=== PATIENT | female | born 1975 | race Caucasian/White ===

== ENCOUNTER 2021-03-28 13:06 | Outpatient (REF) | payer BC, SELFPAY ==
--- NOTE | ~2021-03-28 | XR_ITS ---
EXAMINATION: XR CERVICAL SPINE CLINICAL INFORMATION: Dorsalgia COMPARISON: 04/17/2019 TECHNIQUE: 3 views of the cervical spine were obtained. FINDINGS: No acute fracture or subluxation. Slight anterolisthesis of C5 on C6 noted, likely degenerative. This is similar to prior. Vertebral body height and alignment otherwise maintained. Disc spaces are maintained. The atlantoaxial joint is well aligned. The dens is intact. The prevertebral soft tissues are unremarkable. The visualized lung apices are clear. XR/XR cervical spine 3V IMPRESSION: Minimal degenerative change at C5-C6.
--- NOTE | ~2021-03-28 | XR_ITS ---
EXAMINATION: XR THORACIC SPINE CLINICAL INFORMATION: Dorsalgia COMPARISON: None TECHNIQUE: 3 views of the thoracic spine were obtained. FINDINGS: There is no fracture or bone destruction seen and the vertebral alignment is normal. There is no disc space narrowing. There is no abnormality of the paraspinal soft tissues. The visualized lungs are clear. XR/XR thoracic spine 3V IMPRESSION: Unremarkable examination.
== END 2021-03-28 13:07 | disposition home or self-care (01) ==
LOC: HO.HMGCX 13:06
PROVIDERS: PCP Internal Medicine; Visit Provider Internal Medicine
DX: M54.9 Dorsalgia, unspecified (principal)
CPT/HCPCS: 72040; 72072

== ENCOUNTER 2021-03-31 07:04 | Outpatient (REF) | payer BC, SELFPAY ==
[2021-03-31 11:46] LABS: Hematocrit 41.3 % (37.0-47.0); Hemoglobin 13.7 g/dl (12.0-16.0); Mean Corpuscular HGB Conc 33.2 g/dl (31.0-35.0); Mean Corpuscular Hemoglobin 29.8 pg (27.0-33.0); Mean Corpuscular Volume 89.8 fL (80.0-98.0); Mean Platelet Volume 12.1 fL (9.4-12.3); Platelet Count 285 X10*3/uL (160-400); Red Cell Distribution Width 13.7 % (11.0-16.0); White Blood Count 9.9 X10*3/uL (4.8-10.8)
[2021-03-31 12:11] LABS: Alanine Aminotransferase 18 U/L (0-31); Albumin Level 4.5 g/dL (3.5-5.0); Alkaline Phosphatase 81 U/L (39-117); Anion Gap 12 (12-20); Aspartate Amino Transferase 19 U/L (5-31); Bilirubin Total 0.5 mg/dL (0.0-1.0); Blood Urea Nitrogen 14 mg/dL (9-16); Carbon Dioxide 22 mmol/L (22-29); Chloride 110 mmol/L (96-108); Cholesterol 244 mg/dL; Estimated Glomerular Filt Rate > 60; Glucose Fasting 96 mg/dL (60-99); HDL Cholesterol 55 mg/dL; LDL Cholesterol Calculated 157 mg/dl; Potassium 4.2 mmol/L (3.3-5.1); Sodium 140 mmol/L (135-145); Total Protein 7.1 g/dL (6.5-8.0); Triglycerides 161 mg/dL
[2021-03-31 12:18] LABS: TSH reflex Free T4 1.78 uIU/mL (0.32-4.0)
== END 2021-03-31 07:05 | disposition home or self-care (01) ==
LOC: HO.HMGCLDS 07:04
PROVIDERS: PCP Internal Medicine; Visit Provider Internal Medicine
DX: Z00.00 Encounter for general adult medical examination without abnormal findings (principal)
CPT/HCPCS: 36415; 80053; 80061; 84443; 85027

== ENCOUNTER 2021-05-02 07:38 | Outpatient (RCR) | payer BC, SELFPAY ==
--- NOTE | 2021-05-02 08:54 | MHC.PT.EP ---
[facility] [place] Office [place] Office [place] Office [address] Catie De Jesus [address] [phone] F: [phone] F: [phone] F: [phone] F: [phone] Physical Therapy Plan of Care Date of Evaluation: Date of Surgery: n/a Diagnosis: upper back pain Assessment: Patient is a 45 year old female presenting to PT with complaints of pain in her neck and upper back region. Pt reports onset of pain began over 3 months ago due to insidious onset. She presents today with impairments in pain +ttp R scap musculature and periscap region, posture, and pain free ROM. 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 Pt expresses prison goal of being able to sleep, and is motivated to work towards this in PT. Clinical presentation today is most consistent with signs and sx associated with postural related pain and possible upper crossed syndrome and pt will benefit from skilled PT to address the following problems and impairments noted upon evaluation: pain +ttp R scap musculature and periscap region, posture, and pain free ROM. These problems limit the patient with the following functional activities: sleeping, and prolonged standing. The prescribed treatment plan of care is medically necessary. Co-morbidities of none were identified and taken into considerations of plan of care. Pt was educated on HEP, role of PT, prognosis, POC. Frequency and Duration: The patient will be seen 2 x week x 4 weeks Short Term Goals: Pt will demonstrate improved pain to <3/10 at rest for improved QOL in 2 weeks. Pt will demonstrate function pain free shoulder ROM in all directions in 2 weeks. Pt will demonstrate improved postural awareness by sitting with biomechanically correct posture without cues throughout session to improve overall postural function in 2 weeks. Shelter Goals: Pt will demonstrate improved NDI score to less than 20% disability in 4 weeks for improved tolerance to functional activities. Pt will demonstrate self reports of improved ability to sleep through the night with min to no pain in 4 weeks. Pt will demonstrate ability to stand for prolonged periods of time in 4 weeks for improved tolerance to grocery shopping. Treatment Plan: Modalities to reduce pain, spasms and effusion. Manual therapy to restore motion and function. Therapeutic exercise to improve strength and flexibility. Neuromuscular re-education for posture and balance. Therapeutic activities to return to functional activities of daily living. Electronically signed by: Sariah Gonzalez, PT, DPT, ATC Please sign and return to therapist. Thank you for your referral.
--- NOTE | 2021-06-19 09:51 | MHC.PT.DC ---
[facility] [place] Office [place] Office [address] Te[address] De Jesus [address] [phone] F: [phone] F: [phone] F: [phone] F: [phone] Physical Therapy Discharge Report Diagnosis: upper back pain Date of Surgery: n/a Date of Evaluation: 05/02/21 Date of Discharge: 06/19/21 Treatments to Date: 1 Cancellations to Date: 2 No Shows to Date: 0 Discharge Status: Patient Elected to Stop Visit Non-compliance Discharge Summary: Pt has not returned to skilled PT since evaluation. She cancelled her only 2 scheduled appts. It has been over 30 days since start of care and pt status currently unknown at this time. Electronically signed by: Sariah Gonzalez, PT, DPT, ATC Please sign and return to therapist. Thank you for your referral.
== END 2021-06-19 09:51 | disposition home or self-care (01) ==
LOC: HO.PTCHIC 07:38
PROVIDERS: PCP Internal Medicine; Visit Provider Internal Medicine
DX: M54.9 Dorsalgia, unspecified (principal)
CPT/HCPCS: 97110; 97161

== ENCOUNTER 2021-09-19 07:10 | Outpatient (REF) | payer BC, SELFPAY ==
[2021-09-19 11:57] LABS: Cholesterol 230 mg/dL; HDL Cholesterol 65 mg/dL; LDL Cholesterol Calculated 144 mg/dl; Triglycerides 109 mg/dL
== END 2021-09-19 07:11 | disposition home or self-care (01) ==
LOC: HO.HMGCLDS 07:10
PROVIDERS: Visit Provider Internal Medicine
DX: E78.5 Hyperlipidemia, unspecified (principal)
CPT/HCPCS: 36415; 80061

== ENCOUNTER 2022-10-03 07:29 | Outpatient (REF) | payer BC, SELFPAY ==
[2022-10-03 11:12] LABS: MANUAL DIFF FLAG NO
[2022-10-03 11:24] LABS: Basophils Absolute Auto 0.1 X10*3/uL (0.0-0.2); Basophils Percent Auto 1.2 % (0-2); Eosinophils Absolute Auto 0.3 X10*3/uL (0.0-0.4); Eosinophils Percent Auto 3.2 % (0-4); Hematocrit 42.2 % (37.0-47.0); Hemoglobin 13.8 g/dl (12.0-16.0); Imm Gran Abs Auto 0.02 X10*3/uL (0.00-0.03); Imm Gran Pct Auto 0.2 % (0.0-0.4); Lymphocytes Absolute Auto 3.2 X10*3/uL (1.2-4.9); Lymphocytes Percent Auto 31.2 % (20-40); Mean Corpuscular HGB Conc 32.7 g/dl (31.0-35.0); Mean Corpuscular Hemoglobin 29.2 pg (27.0-33.0); Mean Corpuscular Volume 89.2 fL (80.0-98.0); Monocytes Absolute Auto 0.8 X10*3/uL (0.1-1.2); Monocytes Percent Auto 8.3 % (2-11); Neutrophils Absolute Auto 5.7 x10*3/uL (2.0-8.3); Neutrophils Percent Auto 55.9 % (45-73); Platelet Count 285 X10*3/uL (160-400); Red Blood Count 4.73 X10*6/uL (4.20-5.50); Red Cell Distribution Width 13.9 % (11.0-16.0); White Blood Count 10.2 X10*3/uL (4.8-10.8)
[2022-10-03 11:38] LABS: Alanine Aminotransferase 19 U/L (0-31); Albumin Level 4.2 g/dL (3.5-5.0); Alkaline Phosphatase 72 U/L (39-117); Anion Gap 12 (12-20); Aspartate Amino Transferase 18 U/L (5-31); Bilirubin Total 0.4 mg/dL (0.0-1.0); Blood Urea Nitrogen 19 mg/dL (9-16); C Reactive Protein 2.84 mg/dL (< or = 0.50); Calcium 9.2 mg/dL (8.4-10.2); Carbon Dioxide 24 mmol/L (22-29); Chloride 110 mmol/L (96-108); Cholesterol 247 mg/dL; Estimated Glomerular Filt Rate > 60; Glucose Fasting 94 mg/dL (60-99); HDL Cholesterol 47 mg/dL; LDL Cholesterol Calculated 171 mg/dl; Rheumatoid Factor < 13.0 IU/mL (<15.0); Sodium 142 mmol/L (135-145); Triglycerides 149 mg/dL
== END 2022-10-03 07:30 | disposition home or self-care (01) ==
LOC: HO.HMGCLDS 07:29
PROVIDERS: PCP Internal Medicine; Visit Provider Internal Medicine
DX: Z00.00 Encounter for general adult medical examination without abnormal findings (principal); K59.00 Constipation, unspecified; K21.9 Gastro-esophageal reflux disease without esophagitis
CPT/HCPCS: 36415; 80053; 80061; 85025; 86140; 86431

== ENCOUNTER 2022-10-15 07:45 | Outpatient (REF) | payer BC, SELFPAY ==
[2022-10-18 16:28] LABS: Cyclic Citrullinated Peptide <16 UNITS
[2022-10-19 17:57] LABS: Lyme Abs Screen <0.90 index
[2022-10-28 09:38] LABS: Anti Nuclear Antibody Screen POSITIVE (NEGATIVE)
== END 2022-10-15 07:46 | disposition home or self-care (01) ==
LOC: HO.HMGCLDS 07:45
PROVIDERS: PCP Internal Medicine; Visit Provider Internal Medicine
DX: R79.82 Elevated C-reactive protein (CRP) (principal); R82.90 Unspecified abnormal findings in urine
CPT/HCPCS: 36415; 86038; 86039; 86200; 86617; 86618; 87086

== ENCOUNTER 2022-11-24 10:25 | Outpatient (REF) | payer BC, SELFPAY ==
[2022-11-24 11:47] LABS: Erythrocyte Sedimentation Rate 8 MM/HR (0-20)
[2022-11-24 12:05] LABS: Rheumatoid Factor < 13.0 IU/mL (<15.0)
[2022-11-25 10:54] LABS: Complement C3 186 mg/dL (83-193)
[2022-11-27 12:33] LABS: Aldolase 3.5 U/L (<=8.1)
[2022-11-27 13:33] LABS: IgA 187 mg/dL (47-310); IgG 1198 mg/dL (600-1640); IgM 96 mg/dL (50-300)
[2022-11-28 12:43] LABS: DNAds, Crithidia Antibody Negative (Negative)
== END 2022-11-24 10:26 | disposition home or self-care (01) ==
LOC: HO.LAB 10:25
PROVIDERS: PCP Internal Medicine; Visit Provider Psychiatry & Neurology Neurology
DX: R20.2 Paresthesia of skin (principal)
CPT/HCPCS: 36415; 82085; 82550; 82784; 85652; 86160; 86255; 86334; 86431

== ENCOUNTER 2023-01-06 08:53 | Outpatient (AMB) | payer BC, SELFPAY ==
[2023-01-06 09:14] VITALS: BP 122/70; PULSE 82; TEMP 36.3; O2SAT 98; BMI 32.2
--- NOTE | 2023-01-06 09:14 | A.OFFVIS_ITS ---
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 Accompanied by: Self / Same As Patient Allergies aspirin Allergy (Unknown, Unverified 01/06/23 09:17) Stomach pain meperidine [Demerol] Allergy (Unknown, Verified 01/06/23 09:17) face swelling latex Allergy (Verified 01/06/23 09:17) Rash Medication List - Last Reconciled 01/06/23 by Carl Reid MD baclofen 10 mg PO BEDTIME PRN estradiol 1 mg PO DAILY levothyroxine (Synthroid) 100 mcg PO DAILY meloxicam 15 mg PO DAILY PRN omeprazole 40 mg PO DAILY sertraline 50 mg PO DAILY tamsulosin 0.4 mg PO DAILY topiramate 50 mg PO TID trazodone 50 mg PO BEDTIME HPI HPI Comments History of Present Illness Details This is a 47-year-old female with a past medical history of psoriasis who presents for evaluation of diffuse joint pain and elevated CRP. Patient mentions that she has had psoriasis for more than 15 years, she would have the patches on her elbows, legs and occasionally on her scalp. Treated with topical steroids. She denies ever requiring more aggressive therapy in the past for psoriasis. Over the past year patient has had recurrent migratory joint pain affecting different joints including her right shoulder, wrists, elbows, knees, feet. Her fingers, feet, knees would be swollen. The pain and swelling is sometimes brought on with activity. She had a left bunion surgery a year ago and she believes it did not heal well. She continues to have pain in her left big toe. She stated that she has had lumbar spine surgery about 10 years ago. She was feeling well for a few years however over the last year she has been having pain in her lower back radiating to her right lower extremity. This pain is similar to the pain she had in the past. [facility] Medical History (Updated 01/06/23 @ 11:52 by Carl Reid MD) Annual physical exam Bunion of great toe of right foot History of nephrolithiasis Migraine Psoriasis Upper back pain Surgical History History of bilateral breast reduction surgery Hx of hysterectomy Family History Father Hypertension Head and neck cancer Mother Hypertension Social History Housing: House Patient Tobacco Use Status: Never used Tobacco e-Cigarette/Vaping Use: Never Used Current occupational status: employed Cognitive needs: No Hearing needs: No Vision needs: Yes Review of Systems Const Reports fatigue, Reports headache(s) and Reports weakness Eyes Reports dry eyes, Reports itchy eyes and Reports eye pain ENT Reports dizziness, Reports dry mouth, Reports headache(s) and Reports tinnitus GI Reports constipation, Reports heartburn and Reports nausea Musc Reports back pain, Reports arthralgias, Reports joint swelling, Reports limited range of motion and Reports stiffness Neuro Reports dizziness, Reports headache(s) and Reports weakness Psych Reports anxiety and Reports depression Endo Reports fatigue Aller/Immun Reports itchy eyes Physical Exam Vital Signs: Last Vital Signs Temp 97.3 F 01/06/23 09:14 Pulse 82 01/06/23 09:14 BP 122/70 01/06/23 09:14 Pulse Ox 98 01/06/23 09:14 BMI result Body Mass Index 32.2 Const General: cooperative, healthy appearing and comfortable Nutritional Appearance: obese Orientation/consciousness: patient oriented x3 Limitations: no limitations HEENT Head: Yes normocephalic and Yes atraumatic Mouth: moist mucous membranes Resp Effort & Inspection: normal respiratory effort and able to speak in complete sentences Auscultation: clear to auscultation bilaterally Cardio Rate: regular rate Rhythm: regular rhythm GI Palpation (GI): Soft to palpation and nontender Skin General skin exam: no rashes or lesions noted Neuro General: patient oriented x3 Extrem Other: Mild right wrist swelling and pain with full flexion and extension Left wrist pain with full flexion and extension Bilateral diffuse PIP tenderness Bilateral elbow pain with full extension Right shoulder pain with passive range of motion Negative straight leg raise test bilaterally Negative Fabere test bilaterally Aixa test 10-16 cm Assessment & Plan Assessment & Plan (1) Inflammatory arthritis: Code(s): M19.90 - Unspecified osteoarthritis, unspecified site Plan: This is a 47-year-old female with a past medical history of psoriasis who presents for evaluation of 1 year history of migratory joint pain. Upon evaluation patient has multiple tender joints. Labs showed elevated CRP. Clinical picture consistent with inflammatory arthritis. Will order comprehensive serology to screen for underlying autoimmune rheumatic disease. Check x-rays of involved joints. Start prednisone therapeutic trial (2) ESTHELA positive: Code(s): R76.8 - Other specified abnormal immunological findings in serum Plan: Will order comprehensive sub serologies for full evaluation Plan I spent 46 minutes reviewing patient's chart, evaluating patient, ordering diagnostic workup, counseling patient and documenting in the chart Orders: Orders Complete Blood Count Auto Diff Today L40.50 - Arthropathic psoriasis, unspecified Comprehensive Met. Panel Today L40.50 - Arthropathic psoriasis, unspecified C Reactive Protein Today L40.50 - Arthropathic psoriasis, unspecified Erythrocyte Sedimentation Rate Today L40.50 - Arthropathic psoriasis, unspecified Hepatitis A,B,C Profile Today Z11.59 - Encounter for screening for other viral diseases Immunofixation Pnl, Serum Today L40.50 - Arthropathic psoriasis, unspecified Protein Electrophoresis, Serum Today L40.50 - Arthropathic psoriasis, unspecified T Spot TB Today Z11.7 - Encounter for testing for latent tuberculosis infection Anti Extractable Nuclear Ag Today R76.8 - Other specified abnormal immunological findings in serum Protein Creatinine Ratio, Ur Today R76.8 - Other specified abnormal immunological findings in serum Sjogren's Antibodies Today R76.8 - Other specified abnormal immunological findings in serum UA w Microscopic Today R76.8 - Other specified abnormal immunological findings in serum HLA B27 Today G89.29 - Other chronic pain, M54.50 - Low back pain, unspecified XR sacroiliac joint min 3V Today L40.50 - Arthropathic psoriasis, unspecified XR lumbar spine 4V min Today L40.50 - Arthropathic psoriasis, unspecified XR hand wrist LT Today L40.50 - Arthropathic psoriasis, unspecified XR hand wrist RT Today L40.50 - Arthropathic psoriasis, unspecified XR shoulder LT min 2V Today L40.50 - Arthropathic psoriasis, unspecified XR shoulder RT min 2V Today L40.50 - Arthropathic psoriasis, unspecified XR foot LT min 3V Today L40.50 - Arthropathic psoriasis, unspecified XR foot RT min 3V Today L40.50 - Arthropathic psoriasis, unspecified Medications: New prednisone Take 3 tabs by mouth once daily with breakfast for 1 week then 2 tabs daily for 1 week then 1 tab daily for 1 week then stop 10 mg PO DAILY 42 tabs 0RF Changed From meloxicam 15 mg PO DAILY 20 tabs 2RF To meloxicam 15 mg PO DAILY PRN Coding Level of Care Code New Pt Level 4 (45597) Diagnoses Inflammatory arthritis M19.90 ESTHELA positive R76.8
== END 2023-01-06 10:08 | disposition home or self-care (01) ==
PROVIDERS: PCP Internal Medicine; Visit Provider Student in an Organized Health Care Education/Training Program
DX: M19.90 Unspecified osteoarthritis, unspecified site (principal); R76.8 Other specified abnormal immunological findings in serum
CPT/HCPCS: 99204

== ENCOUNTER 2023-01-06 08:53 | Outpatient (REF) | payer BC, SELFPAY ==
--- NOTE | ~2023-01-06 | XR_ITS ---
EXAMINATION: XR FOOT, LEFT CLINICAL INFORMATION: Arthropathic psoriasis, unspecified COMPARISON: None available. TECHNIQUE: AP, lateral, and oblique views of the left foot. FINDINGS: No acute bony fracture or dislocation seen. There is slight medial eccentric narrowing of the left first MTP joint. Metatarsals are intact. No erosive process seen. Midfoot and calcaneus appear unremarkable. XR/XR foot LT min 3V IMPRESSION: No acute process. Slight medial eccentric narrowing of the left first MTP joint.
--- NOTE | ~2023-01-06 | XR_ITS ---
EXAMINATION: XR SACROILIAC JOINTS CLINICAL INFORMATION: Arthropathic psoriasis, unspecified COMPARISON: None available. TECHNIQUE: 3 views of the sacroiliac joints FINDINGS: Bones and soft tissues are normal. No fracture. Alignment is anatomic. The SI joints are maintained with no erosions or ankylosis. There is sclerosis on the iliac side of the SI joints, likely on a degenerative basis. XR/XR sacroiliac joint min 3V IMPRESSION: 1. SI joints maintained. No erosions or ankylosis. 2. Degenerative changes of the SI joints.
--- NOTE | ~2023-01-06 | XR_ITS ---
EXAMINATION: XR SHOULDER, RIGHT CLINICAL INFORMATION: Arthropathic psoriasis, unspecified COMPARISON: March 2019. TECHNIQUE: AP external rotation, Grashey, scapular Y, and axillary views of the right shoulder. FINDINGS: No evidence for acute fracture or dislocation. The right glenohumeral joint space is maintained. Scapula intact. The clavicle and AC joint are unremarkable. No erosive process seen. XR/XR shoulder RT min 2V IMPRESSION: No acute process. No significant change since previous examination.
--- NOTE | ~2023-01-06 | XR_ITS ---
EXAMINATION: XR LUMBOSACRAL SPINE WITH OBLIQUES CLINICAL INFORMATION: Arthropathic psoriasis, unspecified COMPARISON: Lateral reconstructions from abdomen pelvis CT 09/09/2022. TECHNIQUE: AP, both oblique, and lateral views of the lumbar spine. Lateral view of the lumbosacral junction. FINDINGS: No evidence for acute lumbar compression fracture. Postsurgical changes again observed at the L5-S1 level. There is facet arthrosis. Sacrum appears intact. SI joints are maintained. Pedicles and transverse processes unremarkable. No evidence for spondylolysis. XR/XR lumbar spine 4V min IMPRESSION: 1. No acute compression fracture. Facet arthrosis. 2. Postsurgical changes L5-S1.
--- NOTE | ~2023-01-06 | XR_ITS ---
EXAMINATION: XR SHOULDER, LEFT CLINICAL INFORMATION: Arthropathic psoriasis, unspecified COMPARISON: None available. TECHNIQUE: AP external rotation, Grashey, scapular Y, and axillary views of the left shoulder. FINDINGS: No acute fracture or dislocation seen. Clavicle and the AC joint are unremarkable. The scapula appears within normal limits. The glenohumeral joint space appears unremarkable. XR/XR shoulder LT min 2V IMPRESSION: No acute process.
--- NOTE | ~2023-01-06 | XR_ITS ---
EXAMINATION: XR WRIST, RIGHT XR HAND, RIGHT CLINICAL INFORMATION: Arthropathic psoriasis, unspecified COMPARISON: None available. TECHNIQUE: PA, lateral, and oblique views of the right wrist and PA, lateral, and oblique views of the right hand FINDINGS: RIGHT WRIST: The bones and soft tissues are normal. No fracture. Alignment is anatomic. There is slight narrowing in the lateral aspect of the radiocarpal joint. No erosions or soft tissue calcifications. RIGHT HAND: The bones and soft tissues are normal. No fracture. Alignment is anatomic. Joint spaces are maintained. No erosions or soft tissue calcifications. XR/XR hand wrist RT IMPRESSION: No acute process. Slight narrowing in the lateral aspect of the radiocarpal joint. No erosions or soft tissue calcifications.
--- NOTE | ~2023-01-06 | XR_ITS ---
EXAMINATION: XR WRIST, LEFT XR HAND, LEFT CLINICAL INFORMATION: Arthropathic psoriasis, unspecified COMPARISON: None available. TECHNIQUE: PA, lateral, and oblique views of the left wrist and PA, lateral, and oblique views of the left hand FINDINGS: LEFT WRIST: The bones and soft tissues are normal. No fracture. Alignment is anatomic. Joint spaces are maintained. No erosions or soft tissue calcifications. LEFT HAND: The bones and soft tissues are normal. No fracture. Alignment is anatomic. Joint there is eccentric narrowing of the IP joint of the left first digit. No erosions or soft tissue calcifications. XR/XR hand wrist LT IMPRESSION: No evidence for acute process. Degenerative changes of the IP joint of the left first digit. No erosions or soft tissue calcifications.
--- NOTE | ~2023-01-06 | XR_ITS ---
EXAMINATION: XR FOOT, RIGHT CLINICAL INFORMATION: Arthropathic psoriasis, unspecified COMPARISON: None available. TECHNIQUE: AP, lateral, and oblique views of the right foot. FINDINGS: No evidence for acute fracture, dislocation, or erosive process. MCP joints are maintained. There are postoperative changes at the right first metatarsal head with a screw in position. Slight narrowing of the right first TMT joint. Midfoot and calcaneus appear intact. XR/XR foot RT min 3V IMPRESSION: No acute process. Postoperative changes at the right first metatarsal head. Slight narrowing of the right first TMT joint.
[2023-01-06 10:40] LABS: MANUAL DIFF FLAG NO
[2023-01-06 11:19] LABS: Basophils Absolute Auto 0.1 X10*3/uL (0.0-0.2); Basophils Percent Auto 1.3 % (0-2); Eosinophils Absolute Auto 0.3 X10*3/uL (0.0-0.4); Eosinophils Percent Auto 3.5 % (0-4); Hematocrit 42.1 % (37.0-47.0); Imm Gran Abs Auto 0.03 X10*3/uL (0.00-0.03); Imm Gran Pct Auto 0.3 % (0.0-0.4); Lymphocytes Absolute Auto 3.3 X10*3/uL (1.2-4.9); Lymphocytes Percent Auto 36.4 % (20-40); Mean Corpuscular HGB Conc 33.3 g/dl (31.0-35.0); Mean Corpuscular Hemoglobin 29.2 pg (27.0-33.0); Mean Corpuscular Volume 87.7 fL (80.0-98.0); Mean Platelet Volume 11.6 fL (9.4-12.3); Monocytes Absolute Auto 0.7 X10*3/uL (0.1-1.2); Monocytes Percent Auto 7.4 % (2-11); Neutrophils Absolute Auto 4.6 x10*3/uL (2.0-8.3); Neutrophils Percent Auto 51.1 % (45-73); Platelet Count 298 X10*3/uL (160-400); Red Cell Distribution Width 13.3 % (11.0-16.0); White Blood Count 9.1 X10*3/uL (4.8-10.8)
[2023-01-06 11:54] LABS: Erythrocyte Sedimentation Rate 5 MM/HR (0-20)
[2023-01-06 11:59] LABS: Alanine Aminotransferase 33 U/L (0-31); Albumin Level 4.3 g/dL (3.5-5.0); Alkaline Phosphatase 73 U/L (39-117); Anion Gap 15 (12-20); Aspartate Amino Transferase 23 U/L (5-31); Bilirubin Total 0.2 mg/dL (0.0-1.0); Blood Urea Nitrogen 15 mg/dL (9-16); C Reactive Protein 1.26 mg/dL (< or = 0.50); Calcium 9.7 mg/dL (8.4-10.2); Carbon Dioxide 26 mmol/L (22-29); Chloride 105 mmol/L (96-108); Estimated Glomerular Filt Rate > 60; Glucose Random 102 mg/dL (60-115); Sodium 142 mmol/L (135-145); Total Protein 7.5 g/dL (6.5-8.0)
[2023-01-06 12:34] LABS: Appearance Urine Cloudy; Color Urine Yellow; Glucose Urine UA Negative (Negative); Leukocyte Esterase Urine Negative (Negative); Nitrite Urine Negative (Negative); Specific Gravity - Urine 1.015 (1.005-1.025); Urine Blood Negative (Negative); Urine Ketones Negative (Negative); Urine Protein Negative (Neg-Trace)
[2023-01-06 12:36] LABS: Bacteria Urine 1+ (None Seen); Hyaline Casts Urine 0-2 /LPF (0-2); RBC Urine 0-2 /HPF (0-2); WBC Urine 0-5 /HPF (0-5)
[2023-01-06 14:51] LABS: Creatinine Urine 62.41 mg/dL; Total Protein Urine Random < 7 mg/dL (<12)
[2023-01-07 04:03] LABS: HBS Num1 0.25 mIU/mL (0-7.99); HBc Num1 0.11 S/CO (0.00-0.79); HBsAGNum1 0.35 S/CO (0.00-0.99); Hepatitis A Antibody IgM 0.18 Index (0-0.79); Hepatitis B Core Antibody Nonreactive (Nonreactive); Hepatitis B Surface Antigen Negative (Negative); ~HepC Num1 0.13 S/CO (0.00-0.79); ~Hepatitis A Antibody IgM Nonreactive (Nonreactive); ~Hepatitis B Surface Antibody NONREACTIVE (Nonreactive); ~Hepatitis C Antibody Nonreactive (Nonreactive)
[2023-01-08 11:29] LABS: Antibody to SS-A Antigen <1.0 NEG AI (<1.0 NEG); Antibody to SS-B Antigen <1.0 NEG AI (<1.0 NEG); SM/Ribonucleoprotein Ab <1.0 NEG AI (<1.0 NEG); Smith Protein <1.0 NEG AI (<1.0 NEG)
[2023-01-08 16:32] LABS: TS Negative Control Passed; TS Panel A 0; TS Panel B 0; TS Positive Control Passed; TSpotTB Negative (Negative)
[2023-01-11 09:18] LABS: IgA 185 mg/dL (47-310); IgG 1212 mg/dL (600-1640); IgM 92 mg/dL (50-300)
[2023-01-11 11:53] LABS: Prot Elec - Albumin 4.3 g/dL (3.8-4.8); Prot Elec - Alpha1 0.3 g/dL (0.2-0.3); Prot Elec - Alpha2 0.6 g/dL (0.5-0.9); Prot Elec - Beta 1 0.4 g/dL (0.4-0.6); Prot Elec - Beta 2 0.4 g/dL (0.2-0.5); Prot Elec - Gamma 0.9 g/dL (0.8-1.7)
[2023-01-12 09:58] LABS: HLA B27 Negative (Negative)
== END 2023-01-06 08:54 | disposition home or self-care (01) ==
LOC: HO.LAB 08:53
PROVIDERS: PCP Internal Medicine; Visit Provider Student in an Organized Health Care Education/Training Program
DX: M54.50 Low back pain, unspecified (principal); L40.50 Arthropathic psoriasis, unspecified; M25.50 Pain in unspecified joint; M19.90 Unspecified osteoarthritis, unspecified site; R76.8 Other specified abnormal immunological findings in serum; G89.29 Other chronic pain; Z11.7 Encounter for testing for latent tuberculosis infection; Z11.59 Encounter for screening for other viral diseases; Z72.89 Other problems related to lifestyle; Z79.899 Other long term (current) drug therapy
CPT/HCPCS: 36415; 72110; 72202; 73030; 73110; 73130; 73630; 80053; 81001; 82784; 84156; 84165; 85025; 85652; 86140; 86235; 86334; 86481; 86704; 86706; 86709; 86803; 86812; 87340

== ENCOUNTER 2023-01-20 09:47 | Outpatient (AMB) | payer BC, SELFPAY ==
[2023-01-20 09:51] VITALS: BP 122/84; PULSE 84; TEMP 36.3; O2SAT 98; BMI 33.1
--- NOTE | 2023-01-20 09:51 | MHC.OFFVIS ---
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 Accompanied by: Self / Same As Patient Allergies aspirin Allergy (Unknown, Unverified 01/20/23 10:00) Stomach pain meperidine [Demerol] Allergy (Unknown, Verified 01/20/23 10:00) face swelling latex Allergy (Verified 01/20/23 10:00) Rash Medication List - Last Reconciled 01/20/23 by Carl Reid MD baclofen 10 mg PO BEDTIME PRN estradiol 1 mg PO DAILY levothyroxine (Synthroid) 100 mcg PO DAILY meloxicam 15 mg PO DAILY PRN omeprazole 40 mg PO DAILY prednisone 10 mg PO DAILY sertraline 50 mg PO DAILY tamsulosin 0.4 mg PO DAILY topiramate 50 mg PO TID trazodone 50 mg PO BEDTIME HPI HPI Comments History of Present Illness Details Patient returns for follow-up after completion of her blood work and x-rays. She states that she took prednisone 30 mg daily for a few days and could not tolerate it due to nausea. She also tried taking 20 mg a day and she also had nausea with it it did not help any of her symptoms. She continues to have tingling numbness and weakness of her fingers. 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 Initial history: This is a 47-year-old female with a past medical history of psoriasis who presents for evaluation of diffuse joint pain and elevated CRP. Patient mentions that she has had psoriasis for more than 15 years, she would have the patches on her elbows, legs and occasionally on her scalp. Treated with topical steroids. She denies ever requiring more aggressive therapy in the past for psoriasis. Over the past year patient has had recurrent migratory joint pain affecting different joints including her right shoulder, wrists, elbows, knees, feet. Her fingers, feet, knees would be swollen. The pain and swelling is sometimes brought on with activity. She had a left bunion surgery a year ago and she believes it did not heal well. She continues to have pain in her left big toe. She stated that she has had lumbar spine surgery about 10 years ago. She was feeling well for a few years however over the last year she has been having pain in her lower back radiating to her right lower extremity. This pain is similar to the pain she had in the past. [facility] Medical History (Updated 01/20/23 @ 13:07 by Carl Reid MD) Annual physical exam Bunion of great toe of right foot History of nephrolithiasis Migraine Psoriasis Upper back pain Surgical History History of bilateral breast reduction surgery Hx of hysterectomy Family History Father Hypertension Head and neck cancer Mother Hypertension Maternal Aunt Psoriatic arthritis Social History Housing: House Patient Tobacco Use Status: Never used Tobacco e-Cigarette/Vaping Use: Never Used Current occupational status: employed Cognitive needs: No Hearing needs: No Vision needs: Yes Review of Systems Musc Reports back pain, Reports myalgias, Reports arthralgias, Reports muscle weakness, Reports numbness and Reports tingling Neuro Reports numbness and Reports tingling Physical Exam Vital Signs: Last Vital Signs Temp 97.3 F 01/20/23 09:51 Pulse 84 01/20/23 09:51 BP 122/84 01/20/23 09:51 Pulse Ox 98 01/20/23 09:51 BMI result Body Mass Index 33.1 Const General: cooperative, healthy appearing and comfortable Nutritional Appearance: obese Orientation/consciousness: patient oriented x3 Limitations: no limitations HEENT Head: Yes normocephalic and Yes atraumatic Resp Effort & Inspection: normal respiratory effort and able to speak in complete sentences Skin General skin exam: no rashes or lesions noted Neuro General: patient oriented x3 Extrem Other: Right wrist pain with full flexion and extension Left wrist pain with full flexion and extension Bilateral diffuse PIP tenderness Positive Tinel sign bilaterally Bilateral elbow pain with full extension Right shoulder pain with passive range of motion Negative straight leg raise test bilaterally Negative Jasmina test bilaterally Aixa test 10-16 cm Few fibromyalgia tender points Assessment & Plan Assessment & Plan (1) Polyarthralgia: Code(s): M25.50 - Pain in unspecified joint Plan: This is a 47-year-old female with a past medical history of psoriasis who presents for evaluation of 1 year history of migratory joint pain.? Upon evaluation patient has multiple tender joints as well as multiple fibromyalgia tender points. Labs showed elevated CRP. Comprehensive serology is unremarkable. X-rays of involved joints do not show signs of inflammatory arthropathy. Symptoms did not improve with prednisone taper. Will order bilateral hand and wrist ultrasound to evaluate for synovitis/tenosynovitis (2) ESTHELA positive: Code(s): R76.8 - Other specified abnormal immunological findings in serum Plan: 1: 80 nuclear fine speckled. Comprehensive sub serologies negative. Her positive ESTHELA is of unclear significant (3) Bilateral carpal tunnel syndrome: Code(s): G56.03 - Carpal tunnel syndrome, bilateral upper limbs Plan: Seems to be her most symptomatic condition. Confirmed with NCS. Advised patient to continue wearing wrist splints. Referred patient to Hand surgery for further evaluation Plan I spent 26 minutes reviewing patient's chart, evaluating patient, ordering diagnostic workup, counseling patient and documenting in the chart Orders: Orders US extremity nonvascular Today M19.90 - Unspecified osteoarthritis, unspecified site Referrals Hand Surgery Referral G56.03 - Carpal tunnel syndrome, bilateral upper limbs Coding Level of Care Code Est Pt Level 4 (70459) Diagnoses Polyarthralgia M25.50 ESTHELA positive R76.8 Bilateral carpal tunnel syndrome G56.03
== END 2023-01-20 10:51 | disposition home or self-care (01) ==
PROVIDERS: PCP Internal Medicine; Visit Provider Student in an Organized Health Care Education/Training Program
DX: M25.50 Pain in unspecified joint (principal); R76.8 Other specified abnormal immunological findings in serum; G56.03 Carpal tunnel syndrome, bilateral upper limbs
CPT/HCPCS: 99214

== ENCOUNTER → 2023-01-20 09:47 | Outpatient (BNVA) | payer BC, SELFPAY | PROVIDERS: PCP Internal Medicine; Visit Provider Student in an Organized Health Care Education/Training Program ==

== ENCOUNTER 2023-02-03 14:40 | Outpatient (AMB) | payer BC, SELFPAY ==
[2023-02-03 15:02] VITALS: BMI 33.0
--- NOTE | 2023-02-03 15:02 | A.OFFVIS_ITS ---
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 States she has had CTS for the a few years now but has worsen about 1 months ago. States this is a work related DOI 01/06/23. 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 She has tried bracing but limits her hand ROM. Patient is interested in discussing surgery. EMG done November 2022. 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 She says she was told she had carpal tunnel syndrome several years ago, but her symptoms worsened in the last month. She says that most recently the numbness feels constant, worse at night. She describes the feeling as if her fingers were burned . 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 She has tried bracing but says this limits her ROM and she does not like it. She still wears her brace at night. She has claim this as a work-related injury, DOI: 01/06/23 and was told her job is claiming this under worker's comp. She has documentation and a claim number. She has a hx of Polyarthralgia and reports fibromyalgia [facility] Medical History (Updated 02/03/23 @ 16:06 by Paulina Mayorga MD) Annual physical exam Bunion of great toe of right foot History of nephrolithiasis Migraine Psoriasis Upper back pain Surgical History History of bilateral breast reduction surgery Hx of hysterectomy Family History Father Hypertension Head and neck cancer Mother Hypertension Maternal Aunt Psoriatic arthritis Social History (Updated 02/03/23 @ 15:12 by JENNIFER Escobedo Housing: House Patient Tobacco Use Status: Never used Tobacco e-Cigarette/Vaping Use: Never Used Current occupational status: employed 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 Cognitive needs: No Hearing needs: No Vision needs: Yes Review of Systems Const All systems reviewed & are unremarkable except as noted in HPI and below Physical Exam Vital Signs: BMI result Body Mass Index 33.0 Const General: cooperative, healthy appearing and no acute distress Orientation/consciousness: patient oriented x3 HEENT Head: Yes normocephalic and Yes atraumatic Eyes EOM: EOMs intact bilaterally Resp Effort & Inspection: normal respiratory effort and able to speak in complete sentences Cardio Jugular venous distension: no JVD Skin General skin exam: turgor normal Rashes: no rashes Neuro General: patient oriented x3 Extrem Other: Evaluation of Bilateral Upper Extremity: The patient is alert, oriented, and in no acute distress Neuro: Decreased sensation in the medial nerve distribution bilaterally. Normal sensation in the right small finger No thenar or intrinsic wasting Good APB muscle belly firing and good finger cross Vascular: Cap refill brisk ROM: She can make a fist and extend all of her digits. Smooth wrist range of motion without pain. Skin: No lacerations or abrasions. General: No Ecchymosis. No Erythema or evidence of infection. Nerve Conduction Study: Referenced on scanned noted from [facility], no specific date of assessment given Mild bilateral carpal tunnel syndrome, improved from previous study in 11/2019 No cubital tunnel syndrome Dr. Sarah 11/2022 Psych Appearance: grossly normal Affect: normal affect Attitude: cooperative Assessment & Plan Assessment & Plan (1) Carpal tunnel syndrome of left wrist: Code(s): G56.02 - Carpal tunnel syndrome, left upper limb (2) Carpal tunnel syndrome of right wrist: Code(s): G56.01 - Carpal tunnel syndrome, right upper limb Plan Assessment & Plan: 1. Right carpal tunnel syndrome, mild Symptoms now constant, worse at night 2. Left Carpal tunnel syndrome, mild Symptoms intermittent, but daily, worse at night This is a workers-comp claim, DOI: 01/06/23 She has a claim number I educated her about this condition I discussed operative and non-operative treatment options The patient would like to proceed with surgeyr, beginning with her right hand The risks and benefits of operative treatment were discussed with the patient and the patient wishes to proceed with surgery. These risks include, but are not limited to risk of damage to blood vessels, nerves, tendons, infection, recurrence, incomplete relief of preoperative symptoms, persistent pain, possible need for further surgery and the risks associated with regional blocks and anesthesia. The plan is to take the patient to the operating room sometime in the next few weeks for the following procedures: 1. Right carpal tunnel release, under local All of the preoperative paperwork including the consent was filled out today. All the patient's questions were answered. The patient understands that they will be contacted by our dairy feed worker soon to schedule this procedure She denies Diabetes, blood thinners, asthma, heart, lung, kidney issues She reports a history of polyarthralgia and fibromyalgia Please note that greater than 20 minutes was spent with this patient going over the history, evaluating the patient and radiographs, formulating possible treatment options, discussing them with the patient, and documenting the visit. Scribed for Paulina Mayorga MD by Fly Richardson, medical aide, on 02/03/23 at 3:50 PM, EST. Coding Level of Care Code New Pt Level 4 (65951) Diagnoses Carpal tunnel syndrome of left wrist G56.02 Carpal tunnel syndrome of right wrist G56.01
== END 2023-02-03 15:53 | disposition home or self-care (01) ==
PROVIDERS: PCP Internal Medicine; Visit Provider Orthopaedic Surgery
DX: G56.03 Carpal tunnel syndrome, bilateral upper limbs (principal)
CPT/HCPCS: 99204

== ENCOUNTER → 2023-02-03 14:40 | Outpatient (BNVA) | payer BC, SELFPAY | PROVIDERS: PCP Internal Medicine; Visit Provider Orthopaedic Surgery | DX: G56.03 Carpal tunnel syndrome, bilateral upper limbs (principal) | CPT/HCPCS: 99202 ==

== ENCOUNTER 2023-03-01 10:35 | Day surgery (SDC) | payer OTHER, BC, SELFPAY ==
[2023-03-01 11:35] VITALS: BMI 33.0
[2023-03-01 11:43] VITALS: BP 133/63; PULSE 73; RESP 16; TEMP 36.4; O2SAT 95
--- NOTE | 2023-03-01 12:49 | MHC.SHP ---
Pre-Procedural Eval Section A Date of Service: 03/01/23 The patient is an INPATIENT: No Changes since office visit: No Cold of Flu in the past 2 weeks, No New Medical Problems, No Changes in Medication and No Patient answered all questions The History & Physical has been completed within 30 days and I have reviewed it.: Yes Section B Chief Complaint: Carpal tunnel syndrome, right upper limb Allergies: Allergies Allergy/AdvReac Type Severity Reaction Status Date / Time aspirin Allergy Unknown Stomach Unverified 02/03/23 15:11 pain meperidine [Demerol] Allergy Unknown face Verified 02/03/23 15:11 swelling latex Allergy Rash Verified 02/03/23 15:11 Plan I have reviewed the history and physical and performed a pertinent physical examination on my patient. No changes have occurred unless specified. Time Spent With Patient Time: Total time managing care of this patient today ____ minutes.
--- NOTE | 2023-03-01 12:49 | W.PM.OPN ---
Operative Note Operative Note Date of Service: 03/01/23 Narrative: Preop diagnosis: 1. right Carpal tunnel syndrome Postop diagnosis: same Procedure: 1. right Carpal tunnel release Surgeon: Paulina Mayorga MD Anesthesia: local block using 1% lidocaine with epinephrine Findings: Thickened transverse carpal ligament. EBL: Less than 5 mL Specimens: None Complications: None Disposition: Brought to recovery room in stable condition Plan: Follow-up for 10-14 days for wound check and suture removal Indications: The patient is 47 years old, with right carpal tunnel syndrome that has been unresponsive to nonoperative management. The risks and benefits of operative treatment including but not limited to risk of damage to blood vessels, nerves, tendons, infection, persistent pain, persistent symptoms, or possible need for additional surgery were discussed with the patient and the patient wishes to proceed with surgery. Procedure: Once consent was obtained a local block was performed using a combination of 1% lidocaine with epinephrine. The patient was then brought back to the operating suite and placed on the operative table in supine position. The right upper extremity was prepped and draped in a standard surgical fashion. Once assured that we had a good block, a 2.0 cm longitudinal incision was made centered over the carpal tunnel. The incision was made through the skin to the subcutaneous tissues using a #15 blade. Dissection was made down to the level of the transverse carpal ligament with care being taken to protect the palmar cutaneous nerve. Once the transverse carpal ligament was clearly visualized, a longitudinal incision was made in the transverse carpal ligament 1st using a #15 blade, then using tenotomy scissors under direct visualization. Care was taken to look for and protect the motor branch of the median nerve when seen in this area. Once satisfied with our carpal tunnel release the wound was copiously irrigated with normal saline and hemostasis was obtained with a brief period of local pressure. The skin edges were reapproximated with some 5.0 nylon suture material and a sterile dressing was applied. The patient appears to have tolerated the procedure well and with no complications. All digits were well vascularized at the conclusion of the case.
== END 2023-03-01 13:50 | disposition home or self-care (01) ==
PROVIDERS: PCP Internal Medicine; Visit Provider Orthopaedic Surgery
PROC: (CPT 64721; principal; 2023-03-01 12:10)
DX: G56.01 Carpal tunnel syndrome, right upper limb (principal); R20.0 Anesthesia of skin; R20.2 Paresthesia of skin; Y99.0 Civilian activity done for income or pay; M25.50 Pain in unspecified joint; M79.7 Fibromyalgia; L40.9 Psoriasis, unspecified; Z88.8 Allergy status to other drugs, medicaments and biological substances; Z91.040 Latex allergy status; Z98.890 Other specified postprocedural states
CPT/HCPCS: 64721; J0171

== ENCOUNTER → 2023-03-01 10:35 | Outpatient (BNV) | payer OTHER, BC, SELFPAY | PROVIDERS: PCP Internal Medicine; Visit Provider Orthopaedic Surgery | DX: G56.01 Carpal tunnel syndrome, right upper limb (principal) | CPT/HCPCS: 64721 ==

== ENCOUNTER 2023-03-16 10:26 | Outpatient (AMB) | payer OTHER, SELFPAY ==
[2023-03-16 10:38] VITALS: BMI 33.0
--- NOTE | 2023-03-16 10:38 | MHC.OFFVIS ---
Intake Vital Signs 03/16/23 10:38 Height 5 ft Weight 169 lb BMI 33.0 Intake Visit Reasons: PO RT CTR 03/01/23AR Intake Note: Sarahy 47 yr old female presents today for her PO Right CTR 03/01/[address] Mayorga. States numbness has improved and would like to book surgery for her left hand as well. Sutures removed in office and steri strips applied. Allergies aspirin Allergy (Unknown, Unverified 03/16/23 10:46) Stomach pain meperidine [Demerol] Allergy (Unknown, Verified 03/16/23 10:46) face swelling latex Allergy (Verified 03/16/23 10:46) Rash HPI PO RT CTR 03/01/23AR HPI Details Sarahy is a 47 year old right hand dominant woman S/P right carpal tunnel release, DOS: 03/01/23 She says she is doing well and her numbness in her right hand has improved and now feels normal She would like to sign up for treatment for her left hand. 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 She has tried bracing but says this limits her ROM and she does not like it. She still wears her brace at night. She has claim this as a work-related injury bilaterally, DOI: 01/06/23 and was told her job is claiming this under worker's comp. She has documentation and a claim number. She has a hx of Polyarthralgia and reports fibromyalgia [facility] Medical History (Updated 02/03/23 @ 16:06 by Paulina Mayorga MD) History of nephrolithiasis Bunion of great toe of right foot Psoriasis Upper back pain Annual physical exam Migraine Surgical History Hx of hysterectomy History of bilateral breast reduction surgery Family History Father Hypertension Head and neck cancer Mother Hypertension Maternal Aunt Psoriatic arthritis Social History Housing: House Patient Tobacco Use Status: Never used Tobacco e-Cigarette/Vaping Use: Never Used Current occupational status: employed 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 Sutures removed and Steri-Strips applied She can make a fist and extend all her digits Sensation in her right hand is improved and now normal tingling and abnormal sensation in all digits of her left hand, including the small finger No intrinsic or thenar wasting. Cap refill is brisk Nerve Conduction Study: Referenced on scanned noted from [facility], no specific date of assessment given Mild bilateral carpal tunnel syndrome, improved from previous study in 11/2019 No cubital tunnel syndrome Dr. Sarah 11/2022 Psych Appearance: grossly normal Affect: normal affect Attitude: cooperative Assessment & Plan Assessment & Plan (1) Carpal tunnel syndrome of left wrist: Code(s): G56.02 - Carpal tunnel syndrome, left upper limb (2) Carpal tunnel syndrome of right wrist: Code(s): G56.01 - Carpal tunnel syndrome, right upper limb Plan Assessment & Plan: 1. Right carpal tunnel syndrome, S/P release DOS: 03/01/23 Pre-operative symptoms constant, worse at night Now with normal sensation The patient appears to be doing well post-operatively I educated her about the post-operative course I explained the signs and symptoms of infection, if the patient develops any new or worsening erythema, drainage, pain, or warmth they should contact the clinic or attend the ED. I discussed activity modifications, she is to lift nothing heavier than a cellphone for the next two weeks She will perform gentle ROM exercises at home She should avoid any underwater activities for the next 5 days She should gently massage about the incision site to reduce the risk of hypersensitivity She was given a note to return to full duty at work on 03/22/23 2. Left Carpal tunnel syndrome, mild Symptoms intermittent, but daily, worse at night All fingers numb and tingly today in clinic. Including the small finger This is a workers-comp claim, DOI: 01/06/23 She has a claim number I educated her about this condition I discussed operative and non-operative treatment options The patient would like to proceed with surgeyr, beginning with her right hand The risks and benefits of operative treatment were discussed with the patient and the patient wishes to proceed with surgery. These risks include, but are not limited to risk of damage to blood vessels, nerves, tendons, infection, recurrence, incomplete relief of preoperative symptoms, persistent pain, possible need for further surgery and the risks associated with regional blocks and anesthesia. The plan is to take the patient to the operating room sometime in April 2023 for the following procedures: 1. Left carpal tunnel release, under local All of the preoperative paperwork including the consent was filled out today. All the patient's questions were answered. The patient understands that they will be contacted by our office rental clerk soon to schedule this procedure She denies Diabetes, blood thinners, asthma, heart, lung, kidney issues She reports a history of polyarthralgia and fibromyalgia Scribed for Paulina Mayorga MD by Fly Richardson, certified medical technician, on 03/16/23 at 11:25 AM, EST. Coding Level of Care Code Est Pt Level 4 (14793) Diagnoses Carpal tunnel syndrome of left wrist G56.02 Carpal tunnel syndrome of right wrist G56.01
== END 2023-03-16 11:32 | disposition home or self-care (01) ==
PROVIDERS: PCP Internal Medicine; Visit Provider Orthopaedic Surgery
DX: G56.03 Carpal tunnel syndrome, bilateral upper limbs (principal)
CPT/HCPCS: 99214

== ENCOUNTER → 2023-03-16 10:26 | Outpatient (BNVA) | payer BC, OTHER, SELFPAY | PROVIDERS: PCP Internal Medicine; Visit Provider Orthopaedic Surgery | DX: Z48.811 Encounter for surgical aftercare following surgery on the nervous system (principal); G56.02 Carpal tunnel syndrome, left upper limb | CPT/HCPCS: 99212 ==

== ENCOUNTER 2023-04-19 10:23 | Day surgery (SDC) | payer OTHER, SELFPAY ==
[2023-04-19 11:02] VITALS: BP 134/69; PULSE 85; RESP 16; TEMP 36.2; O2SAT 97; BMI 30.6
--- NOTE | 2023-04-19 12:44 | MHC.SHP ---
Pre-Procedural Eval Section A Date of Service: 04/19/23 The patient is an INPATIENT: No Changes since office visit: No Cold of Flu in the past 2 weeks, No New Medical Problems, No Changes in Medication and No Patient answered all questions The History & Physical has been completed within 30 days and I have reviewed it.: Yes Section B Chief Complaint: Carpal tunnel syndrome, left upper limb Allergies: Allergies Allergy/AdvReac Type Severity Reaction Status Date / Time aspirin Allergy Unknown Stomach Unverified 03/16/23 10:46 pain meperidine [Demerol] Allergy Unknown face Verified 03/16/23 10:46 swelling latex Allergy Rash Verified 03/16/23 10:46 Plan I have reviewed the history and physical and performed a pertinent physical examination on my patient. No changes have occurred unless specified. Time Spent With Patient Time: Total time managing care of this patient today ____ minutes.
--- NOTE | 2023-04-19 12:45 | P.OP_ITS ---
Operative Note Operative Note Date of Service: 04/19/23 Narrative: Preop diagnosis: 1. Left Carpal tunnel syndrome Postop diagnosis: same Procedure: 1. left Carpal tunnel release Surgeon: Paulina Mayorga MD Anesthesia: local block using 1% lidocaine with epinephrine Findings: Thickened transverse carpal ligament. EBL: Less than 5 mL Specimens: None Complications: None Disposition: Brought to recovery room in stable condition Plan: Follow-up for 10-14 days for wound check and suture removal Indications: The patient is 47 years old, with left carpal tunnel syndrome that has been unresponsive to nonoperative management. The risks and benefits o f operative treatment including but not limited to risk of damage to blood vessels, nerves, tendons, infection, persistent pain, persistent symptoms, or possible need for additional surgery were discussed with the patient and the patient wishes to proceed with surgery. Procedure: Once consent was obtained a local block was performed using a combination of 1% lidocaine with epinephrine. The patient was then brought back to the operating suite and placed on the operative table in supine position. The left upper extremity was prepped and draped in a standard surgical fashion. Once assured that we had a good block, a 2.0 cm longitudinal incision was made centered over the carpal tunnel. The incision was made through the skin to the subcutaneous tissues using a #15 blade. Dissection was made down to the level of the transverse carpal ligament with care being taken to protect the palmar cutaneous nerve. Once the transverse carpal ligament was clearly visualized, a longitudinal incision was made in the transverse carpal ligament 1st using a #15 blade, then using tenotomy scissors under direct visualization. Care was taken to look for and protect the motor branch of the median nerve when seen in this area. Once satisfied with our carpal tunnel release the wound was copiously irrigated with normal saline and hemostasis was obtained with a brief period of local pressure. The skin edges were reapproximated with some 5.0 nylon suture material and a sterile dressing was applied. The patient appears to have tolerated the procedure well and with no complications. All digits were well vascularized at the conclusion of the case.
[2023-04-19 12:58] VITALS: BP 141/81; PULSE 78; RESP 16; O2SAT 98
== END 2023-04-19 12:59 | disposition home or self-care (01) ==
PROVIDERS: PCP Internal Medicine; Visit Provider Orthopaedic Surgery
PROC: (CPT 64721; principal; 2023-04-19 11:30)
DX: G56.02 Carpal tunnel syndrome, left upper limb (principal); M79.7 Fibromyalgia; M25.59 Pain in other specified joint; Z98.890 Other specified postprocedural states; Z88.8 Allergy status to other drugs, medicaments and biological substances; Z91.040 Latex allergy status
CPT/HCPCS: 64721; J0171; J0665

== ENCOUNTER → 2023-04-19 10:23 | Outpatient (BNV) | payer OTHER, SELFPAY | PROVIDERS: PCP Internal Medicine; Visit Provider Orthopaedic Surgery | DX: G56.02 Carpal tunnel syndrome, left upper limb (principal) | CPT/HCPCS: 64721 ==

== ENCOUNTER 2023-04-28 08:17 | Outpatient (REF) | payer BC, SELFPAY ==
[2023-04-28 11:38] LABS: Hematocrit 41.5 % (37.0-47.0); Hemoglobin 13.7 g/dl (12.0-16.0); Mean Corpuscular Hemoglobin 28.7 pg (27.0-33.0); Mean Corpuscular Volume 86.8 fL (80.0-98.0); Mean Platelet Volume 11.4 fL (9.4-12.3); Platelet Count 298 X10*3/uL (160-400); Red Blood Count 4.78 X10*6/uL (4.20-5.50); Red Cell Distribution Width 13.3 % (11.0-16.0); White Blood Count 9.3 X10*3/uL (4.8-10.8)
[2023-04-28 11:47] LABS: Appearance Urine Clear; Color Urine Yellow; Glucose Urine UA Negative (Negative); Leukocyte Esterase Urine Negative (Negative); Nitrite Urine Negative (Negative); PH >= 9.0 (5.0-9.0); Specific Gravity - Urine 1.015 (1.005-1.025); Urine Blood Negative (Negative); Urine Ketones Negative (Negative); Urine Protein Negative (Neg-Trace)
[2023-04-28 11:51] LABS: Bacteria Urine 1+ (None Seen); Hyaline Casts Urine 0-2 /LPF (0-2); RBC Urine 0-2 /HPF (0-2); WBC Urine 0-5 /HPF (0-5)
[2023-04-28 12:18] LABS: Alanine Aminotransferase 22 U/L (0-31); Albumin Level 4.4 g/dL (3.5-5.0); Alkaline Phosphatase 71 U/L (39-117); Anion Gap 11 (12-20); Aspartate Amino Transferase 19 U/L (5-31); Bilirubin Total 0.3 mg/dL (0.0-1.0); Blood Urea Nitrogen 16 mg/dL (9-16); Calcium 9.4 mg/dL (8.4-10.2); Carbon Dioxide 26 mmol/L (22-29); Chloride 105 mmol/L (96-108); Cholesterol 222 mg/dL (<200); Estimated Glomerular Filt Rate > 60; Glucose Fasting 109 mg/dL (60-99); HDL Cholesterol 57 mg/dL (>40); LDL Cholesterol Calculated 134 mg/dL (<100); Sodium 138 mmol/L (135-145); Total Protein 7.6 g/dL (6.5-8.0); Triglycerides 156 mg/dL (<150)
== END 2023-04-28 08:18 | disposition home or self-care (01) ==
LOC: HO.HMGCLDS 08:17
PROVIDERS: PCP Internal Medicine; Visit Provider Internal Medicine
DX: Z00.00 Encounter for general adult medical examination without abnormal findings (principal)
CPT/HCPCS: 36415; 80053; 80061; 81001; 84443; 85027

== ENCOUNTER 2023-05-04 08:59 | Outpatient (AMB) | payer OTHER, SELFPAY ==
--- NOTE | 2023-05-04 09:19 | A.OFFVIS_ITS ---
Intake Vital Signs 05/04/23 09:22 Height 5 ft 1 in Weight 162 lb BMI 30.6 Handedness Right Intake Visit Reasons: PO-Lt CTR 04/19 AR Intake Note: Sarahy is a 47 year old female who presents today for her PO LT CTR 04/19/23 AR. States that her symptoms has improved however her incision site is red and tender. Allergies aspirin Allergy (Unknown, Verified 05/04/23 09:22) Stomach pain meperidine [Demerol] Allergy (Unknown, Verified 05/04/23 09:22) face swelling latex Allergy (Verified 05/04/23 09:22) Rash HPI PO-Lt CTR 04/19 AR HPI Details 47-year-old female who [facility] 2 weeks status post left carpal tunnel release, which was performed on 04/19/[address] Mayorga. The patient reports while in the office today that her symptoms have improved, however she reports some erythema and tenderness around the incision site. 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 Cognitive needs: No Hearing needs: No Vision needs: Yes Review of Systems Const All systems reviewed & are unremarkable except as noted in HPI and below Physical Exam Vital Signs: BMI result Body Mass Index 30.6 Const General: cooperative, healthy appearing and no acute distress Resp Effort & Inspection: normal respiratory effort and able to speak in complete se ntences Cardio Rate: regular rate Peripheral pulses: Peripheral pulses 2+ throughout GI Palpation (GI): Soft to palpation Skin Lesions: no lesions Rashes: no rashes Extrem Other: Left wrist: Left carpal tunnel incision site is clean, dry, and intact. Mild erythema. No active drainage. No pain to palpation. No signs of infection. Full wrist ROM in all planes. Able to make a full fist. Pain, numbness, and tingling has resolved since surgery. NVI. Assessment & Plan Assessment & Plan (1) Carpal tunnel syndrome of left wrist: Comment: Carpal tunnel release 04/19/2023 AR Code(s): G56.02 - Carpal tunnel syndrome, left upper limb Plan Ms. Wagner is a 47-year-old female who presents in the office today 2 weeks status post left carpal tunnel release, which was performed on 04/19/[address] Mayorga. The patient reports while in the office today that her symptoms have improved, however she reports some erythema and tenderness around the incision site. Sutures were removed and steri-stripes were applied while in the office today. 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 Follow up will be PRN, or sooner if needed. Patient Instructions: Scribed for Britney Vu PA-C by Barbara Cardenas medical assistant float, on 05/04/2023 at 9:01 am, EST. Coding Level of Care Code Global (02331) Diagnoses Carpal tunnel syndrome of left wrist G56.02
[2023-05-04 09:22] VITALS: BMI 30.6
== END 2023-05-04 09:40 | disposition home or self-care (01) ==
PROVIDERS: PCP Internal Medicine; Visit Provider Physician Assistant
DX: G56.02 Carpal tunnel syndrome, left upper limb (principal)
CPT/HCPCS: 99024

== ENCOUNTER → 2023-05-04 08:59 | Outpatient (BNVA) | payer BC, SELFPAY | PROVIDERS: PCP Internal Medicine; Visit Provider Physician Assistant | DX: Z09 Encounter for follow-up examination after completed treatment for conditions other than malignant neoplasm (principal); Z86.69 Personal history of other diseases of the nervous system and sense organs | CPT/HCPCS: 99212 ==

== ENCOUNTER 2023-11-30 08:03 | Outpatient (AMB) | payer BC, SELFPAY ==
[2023-11-30 08:05] VITALS: BP 120/78; PULSE 79; O2SAT 100; BMI 30.2
--- NOTE | 2023-11-30 08:05 | MHC.PC.OV ---
Vital Signs 11/30/23 08:05 Height 5 ft 1 in Weight 160 lb BMI 30.2 BP 120/78 Blood Pressure Location Lt brachial Position Sitting Pulse 79 Pulse Source Pulse Oximeter Pulse Oximetry (%) 100 Oxygen Delivery Method Room Air Intake Visit Reasons: PE Intake Note: Pt is here today for PE. Allergies aspirin Allergy (Unknown, Verified 11/30/23 08:07) Stomach pain meperidine [Demerol] Allergy (Unknown, Verified 11/30/23 08:07) face swelling latex Allergy (Verified 11/30/23 08:07) Rash Medication List - Last Reconciled 11/30/23 by Talia Joseph MD baclofen 10 mg PO BEDTIME PRN estradiol 1 mg PO DAILY levothyroxine (Synthroid) 100 mcg PO DAILY meloxicam 15 mg PO DAILY omeprazole 40 mg PO DAILY sertraline 50 mg PO DAILY tamsulosin 0.4 mg PO DAILY topiramate 50 mg PO TID trazodone 50 mg PO BEDTIME Tobacco use date assessed: 11/30/23 Dental Screening Dental Screen Date: 11/30/23 Did you have a dental visit in the last 12 months?: Yes Did you have a dental problem in the last 6 months where you did not have access to dental care?: No Was dental information given to patient?: Patient has dentist HPI PE HPI Details Pt presents for PE. Pt c/o chronic L lower quadrant and pelvis discomfort on and off for 1 year. Pt had negative colonoscopy in 04/22. Patient had a pelvic ultrasound which was not diagnostic because of large amount of stool. Patient denies dysuria urinary frequency she is established with urologist for bilateral nonobstructive kidney stones. Patient is established with the irb compliance coordinator. 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 1. Little interest or pleasure in doing things: not at all 2. Feeling down, depressed, or hopeless: not at all 3. Trouble falling or staying asleep, or sleeping too much: nearly every day 4. Feeling tired or having little energy: several days 5. Poor appetite or overeating: not at all 6. Feeling bad about yourself - or that you are a failure or have let yourself or your family down: not at all 7. Trouble concentrating on things, such as reading the newspaper or watching television: not at all 8. Moving or speaking so slowly that other people could have noticed. Or the opposite - being so fidgety or restless that you have been moving around a lot more than usual: not at all 9. Thoughts that you would be better off or of hurting yourself in some way: not at all Total score: 4 Depression Screening Interpretation: Negative Depression Screening Done: Yes Source: Developed by Drs. Aaron Mcduffie, Zoë Garcia, Morris Mccann and colleagues, with an educational demond from [employer]. Thrive Questionnaire Date Thrive assessed: 11/30/23 I am a: Patient What is your living situation today?: I have a steady place to live Within the past 12 months, did the food you bought not last and you didn't have the money to get more?: Never true Within the past 12 months, did you worry whether your food would run out before you got money to buy more?: Never true Do you have trouble paying for medicines?: No Do you have trouble getting transportation to medical appointments?: No Do you have trouble paying your heating and electricity bill?: No Do you have trouble taking care of your child, family member or friend?: No Do you have trouble with day-to-day activities such as bathing, preparing meals, shopping, managing finances, etc.?: No Are you currently unemployed and looking for a job?: No Are you interested in more education?: No Please select the resources that you would like help with: None THRIVE Score: 0 AUDIT C Alcohol Use Questionnaire (AUDIT-C) 1. How often do you have a drink containing alcohol?: Monthly or less 2. How many drinks containing alcohol do you have on a typical day when you are drinking?: 1 or 2 3. How often do you have six or more drinks on one occasion?: Never Total Score: 1 AGNES-7 AMB Questionnaire AGNES-7 Date AGNES - 7 assessed: 11/30/23 Feeling nervous, anxious, or on edge: 2 = More than half the days Not being able to stop or control worryin = Nearly every day Worrying too much about different things: 3 = Nearly every day Trouble relaxin = More than half the days Being so restless that it is hard to sit still: 0 = Not at all Becoming easily annoyed or irritable: 2 = More than half the days Feeling afraid as if something awful might happen: 0 = Not at all Total AGNES-7 score (0-4 normal; 5-9 mild; 10-14 moderate; 15-21 severe): 12 Source: Developed by Drs. Aaron Mcduffie, Zoë Garcia, Morris Mccann and colleagues, with an educational demond from [employer]. Review of Systems Const All systems reviewed & are unremarkable except as noted in HPI and below Eyes Reports no additional complaints ENT Reports no additional complaints Card Reports no additional complaints Resp Reports no additional complaints GI Reports no additional complaints Reports no additional complaints Physical exam (Primary Care) Vital Signs: Last Vital Signs Pulse 79 11/30/23 08:05 BP 120/78 11/30/23 08:05 Pulse Ox 100 11/30/23 08:05 Oxygen Delivery Method Room Air 11/30/23 08:05 BMI result Body Mass Index 30.2 Tobacco/Smoking Status: Tobacco use Status Tobacco use date assessed 11/30/23 11/30/23 08:10 Patient Tobacco Use Status Never used Tobacco 11/30/23 08:10 e-Cigarette/Vaping Use Never Used 11/30/23 08:10 Depression Screening Interpretation: Negative Thrive Assessment: Date of Thrive Assessment Date Thrive assessed 10/02/22 11/30/23 08:10 Const General: no acute distress HENMT Head: Yes normal to inspection Ears: hearing grossly normal bilaterally General nose exam: Normal external nose present Face and sinus: Yes normal facial exam Mouth: Normal oral and palatal mucosa present Eyes General: appearance normal, both eyes and all related structures Resp Effort & Inspection: normal respiratory effort Auscultation: clear to auscultation bilaterally Cardio Rhythm: regular rhythm Heart sounds: S1 normal heart sound present and S2 normal heart sound present GI Other: Left lower quadrant tenderness no rebound or guarding. Inspection: Yes normal to inspection Palpation (GI): Soft to palpation Percussion: Yes normal to percussion Auscultation: normal bowel sounds Assessment and Plan Assessment & Plan (1) Hx of colonoscopy: Comment: 04/[address] Ramirez Code(s): Z98.890 - Other specified postprocedural states (2) Pelvic pain: Code(s): R10.2 - Pelvic and perineal pain Plan: For chronic left lower quadrant pelvic pain pelvic ultrasound will be obtained to evaluate for ovarian cysts. Patient had hysterectomy and multiple abdominal surgeries with possibilities of scar tissue causing patient chronic pain. She was advised to increase fiber and water intake to prevent constipation (3) Fibromyalgia: Comment: F/U [facility], controlled on gabapentin Code(s): M79.7 - Fibromyalgia Plan: Patient will follow-up with loan service officer (4) Annual physical exam: Code(s): Z00.00 - Encounter for general adult medical examination without abnormal findings Plan: Well-balanced diet regular exercise discussed with the patient she has up-to-date with the mammogram. (5) History of nephrolithiasis: Comment: CT 09/20 MULTIPLE NEPHROLITHIASIS ON LEFT KIDNEY THE LARGEST 9 mm, f/u with Dr. Leo Code(s): Z87.442 - Personal history of urinary calculi Plan: Follow-up with urology (6) Hypothyroidism: Code(s): E03.9 - Hypothyroidism, unspecified Plan: Continue levothyroxine check fasting blood work Orders: Orders US pelvic and transvaginal Today R10.2 - Pelvic and perineal pain UA w Microscopic Today E03.9 - Hypothyroidism, unspecified, M79.7 - Fibromyalgia, Z00.00 - Encounter for general adult medical examination without abnormal findings Comprehensive [place]. Panel Fast 1 Year E03.9 - Hypothyroidism, unspecified, Z00.00 - Encounter for general adult medical examination without abnormal findings Complete Blood Count Auto Diff 1 Year E03.9 - Hypothyroidism, unspecified, Z00.00 - Encounter for general adult medical examination without abnormal findings Lipid Panel Today E03.9 - Hypothyroidism, unspecified, M79.7 - Fibromyalgia, Z00.00 - Encounter for general adult medical examination without abnormal findings Complete Blood Count Auto Diff Today E03.9 - Hypothyroidism, unspecified, M79.7 - Fibromyalgia, Z00.00 - Encounter for general adult medical examination without abnormal findings Comprehensive [place]. Panel Fast Today E03.9 - Hypothyroidism, unspecified, M79.7 - Fibromyalgia, Z00.00 - Encounter for general adult medical examination without abnormal findings TSH reflex Free T4 Today E03.9 - Hypothyroidism, unspecified, M79.7 - Fibromyalgia, Z00.00 - Encounter for general adult medical examination without abnormal findings Lipid Panel 1 Year E03.9 - Hypothyroidism, unspecified, Z00.00 - Encounter for general adult medical examination without abnormal findings TSH reflex Free T4 1 Year E03.9 - Hypothyroidism, unspecified, Z00.00 - Encounter for general adult medical examination without abnormal findings Coding Level of Care Code Est Pt Prev Care 40-64y(96886) Diagnoses Hx of colonoscopy Z98.890 Pelvic pain R10.2 Fibromyalgia M79.7 Annual physical exam Z00.00 History of nephrolithiasis Z87.442 Hypothyroidism E03.9
== END 2023-11-30 08:39 | disposition home or self-care (01) ==
PROVIDERS: PCP Internal Medicine; Visit Provider Internal Medicine
DX: Z98.890 Other specified postprocedural states (principal); R10.2 Pelvic and perineal pain; M79.7 Fibromyalgia; Z00.00 Encounter for general adult medical examination without abnormal findings; Z87.442 Personal history of urinary calculi; E03.9 Hypothyroidism, unspecified
CPT/HCPCS: 99396

== ENCOUNTER 2023-12-07 15:21 | Outpatient (REF) | payer BC, SELFPAY ==
--- NOTE | ~2023-12-07 | US_ITS ---
EXAMINATION: US PELVIS CLINICAL INFORMATION: Left lower quadrant pain; history of prior hysterectomy. COMPARISON: None available. TECHNIQUE: Ultrasound of the pelvis is performed using both transabdominal and transvaginal transducers along with Doppler. Transvaginal imaging is performed due to inadequate visualization transabdominally. Image is limited by overlapping bowel gas. FINDINGS: The uterus is surgically absent. The bilateral ovaries are not identified. No adnexal mass or pelvic free fluid is seen. US/US pelvic and transvaginal IMPRESSION: 1. The uterus is surgically absent. 2. The bilateral ovaries are not identified.
== END 2023-12-07 15:22 | disposition home or self-care (01) ==
LOC: HO.HMGCX 15:21
PROVIDERS: PCP Internal Medicine; Visit Provider Internal Medicine
DX: R10.2 Pelvic and perineal pain (principal)
CPT/HCPCS: 76830; 76856

== ENCOUNTER 2024-12-09 07:05 | Outpatient (REF) | payer BC, SELFPAY ==
[2024-12-09 11:19] LABS: MANUAL DIFF FLAG NO
[2024-12-09 11:23] LABS: Appearance Urine Cloudy; Glucose Urine UA Negative (Negative); PH 7.5 (5.0-9.0); Specific Gravity - Urine 1.015 (1.005-1.025)
[2024-12-09 11:37] LABS: Hematocrit 42.6 % (37.0-47.0); Hemoglobin 14.4 g/dl (12.0-16.0); Imm Gran Abs Auto 0.03 X10*3/uL (0.00-0.03); Imm Gran Pct Auto 0.3 % (0.0-0.4); Lymphocytes Absolute Auto 4.0 X10*3/uL (1.2-4.9); Mean Corpuscular HGB Conc 33.8 g/dl (31.0-35.0); Mean Corpuscular Hemoglobin 29.4 pg (27.0-33.0); Mean Corpuscular Volume 86.9 fL (80.0-98.0); NRBC Abs Auto 0.000 X10*3/uL (0.0-0.012); NRBC Pct Auto 0.0 /100WBC (0.0-0.2); Platelet Count 322 X10*3/uL (160-400); Red Blood Count 4.90 X10*6/uL (4.20-5.50); White Blood Count 9.9 X10*3/uL (4.8-10.8)
[2024-12-09 12:01] LABS: Alanine Aminotransferase 20 U/L (0-31); Albumin Level 4.5 g/dL (3.5-5.0); Alkaline Phosphatase 72 U/L (39-117); Anion Gap 12 (12-20); Aspartate Amino Transferase 23 U/L (5-31); Blood Urea Nitrogen 15 mg/dL (9-16); Calcium 9.3 mg/dL (8.4-10.2); Carbon Dioxide 25 mmol/L (22-29); Chloride 107 mmol/L (96-108); Cholesterol 314 mg/dL (<200); Estimated Glomerular Filt Rate > 60; HDL Cholesterol 49 mg/dL (>40); Potassium 4.1 mmol/L (3.3-5.1); Sodium 140 mmol/L (135-145); Total Protein 7.2 g/dL (6.5-8.0); Triglycerides 192 mg/dL (<150)
[2024-12-09 12:58] LABS: Free T4 (Free Thyroxine) 0.97 ng/dL (0.71-1.85)
== END 2024-12-09 07:06 | disposition home or self-care (01) ==
LOC: HO.HMGCLDS 07:05
PROVIDERS: PCP Internal Medicine; Visit Provider Internal Medicine
DX: Z00.00 Encounter for general adult medical examination without abnormal findings (principal); E03.9 Hypothyroidism, unspecified; M79.7 Fibromyalgia
CPT/HCPCS: 36415; 80053; 80061; 81001; 84439; 84443; 85025

== ENCOUNTER 2024-12-26 08:09 | Outpatient (AMB) | payer BC, SELFPAY ==
--- OUTSIDE RECORDS SUMMARY | 2024-12-26 08:13 | XMS_ITS | Clinical Summary ---
Author Organization [facility] Address [address] [place] [address] Phone Care Team Providers Care Home Care Aide Name Role Phone Talia Joseph MD Primary Care Provider [phone] Surgical History Surgery Date Site/Laterality Comments HYSTERECTOMY UT BREAST REDUCTION Family History Medical History Relation Name Comments Breast cancer Mother's Sister Relation Name Status Comments Mother's Sister Alive Social History Tobacco Use Types Packs/Day Years Used Date Smoking Tobacco: Never Assessed Comments No Sex and Gender Information Value Date Recorded Sex Assigned at Female 03/31/2024 9:10 AM EDT Legal Sex Female 4:21 AM EST Gender Identity Female 03/31/2024 9:10 AM EDT Sexual Orientation Straight 03/31/2024 9: 10 AM EDT Obstetrics History Last Filed Vital Signs Vital Sign Reading Time Taken Comments Blood Pressure - - Pulse - - Temperature - - Respiratory Rate - - Oxygen Saturation - - Inhaled Oxygen Concentration - - Weight 61.7 kg (136 lb) 07/20/2024 2:54 PM EST Height 152.4 cm (5') 07/20/2024 2:54 PM EST Body Mass Index 26.56 07/20/2024 2:54 PM EST Plan of Treatment Health Maintenance Due Date Last Done Comments Hepatitis B Vaccines (1 of 3 - 19+ 3-dose series) 1992 Cervical Cancer Screening: Pap Smear 1994 Colorectal Cancer Screening: Colonoscopy 05/03/2022 HIV Screening 05/03/2022 Hepatitis C Screening 05/03/2022 Social Influencers of Health Screening 05/03/2022 Pneumococcal Vaccine: 50+ Years (1 of 1 - PCV) 11/30/2023 Zoster Vaccines (1 of 2) 11/30/2023 COVID-19 Vaccine ( season) 2024 09/05/2021, 10/24/2020, 10/04/2020, Additional history exists Depression Screening 05/31/2024 Influenza Vaccine (#1) 2025 Breast Cancer Screening 07/20/2026 07/20/19, 07/19/2023, 07/20/2022, Additional history exists DTaP,Tdap,and Td Vaccines (2 - Td or Tdap) 05/14/2033 05/14/2023 HIB Vaccines Aged Out No longer eligi ble based on patient's age to complete this topic HPV Vaccines Aged Out No longer eligi ble based on patient's age to complete this topic Hepatitis A Vaccines Aged Out No long er eligible based on patient's age to complete this topic IPV Vaccines Aged Out No longer eligi ble based on patient's age to complete this topic MMR Vaccines Aged Out No longer eligi ble based on patient's age to complete this topic Meningococcal ACWY Vaccine Aged Out N o longer eligible based on patient's age to complete this topic Meningococcal B Vaccine Aged Out No l onger eligible based on patient's age to complete this topic RSV Immunization Patients Under 20 months Aged Out No longer eligible based on patient's age to complete this topic Varicella Vaccines Aged Out No longer eligible based on patient's age to complete this topic Procedures Procedure Name Priority Date/Time Associated Diagnosis Comments MG MAMMO DIGITAL SCREENING W FAB BILAT Routine 07/20/2024 3:00 PM EST Encounter for gynecological examination (general) (routine) without abnormal findings from Last 3 Months or Most Recently Relevant to Health Maintenance Results * MG Mammo Digital Screening w Fab bilat (07/20/2024 3:00 PM EST) Anatomical Region Laterality Modality Breast Bilateral Mammography 07/21/2024 8:21 AM EST Impressions 07/21/2024 8:22 AM EST Stable mammographic appearance of the breasts. No evidence of malignancy is seen. A negative mammogram in the presence of a clinically suspicious palpable abnormality does not preclude the possibility of malignancy or alter the indications for biopsy. BI-RADS CATEGORY: 2 - BENIGN RECOMMENDATION: Screening bilateral mammogram is recommended in 1 year. Mammo Location: [facility], [address] [place] [address], [id number], . -------- FINAL REPORT -------- Dictated By: Aye Colvin Dictated Date: 07/21/2024 08:21 ET Assigned Physician: Aye Colvin Reviewed and Electronically Signed By: Aye Colvin Signed Date: 07/21/2024 08:22 ET Workstation ID: [id number] Transcribed By: Self Edit Transcribed Date: 07/21/2024 08:21 ET Narrative 07/21/2024 8:22 AM EST HISTORY: Screening. Reduction mammoplasty in 2000. Aunt had breast carcinoma. COMPARISON: 07/19/23, 07/18/22, 07/11/21 TECHNIQUE: Bilateral digital breast tomosynthesis was performed in the CC and MLO projections. Computer aided detection with [employer] AI 3D 3.1 was employed. BREAST DENSITY: A - The breasts are almost entirely fatty. FINDINGS: Reduction mammoplasty sequelae are again seen, including several small round calcifications close to the skin line. No suspicious masses, grouped microcalcifications, or developing architectural distortion are seen. The vascularity is unremarkable. Procedure Note Aye Colvin MD - 07/21/2024 HISTORY: Screening. Reduction mammoplasty in 2000. Aunt had breastcarcinoma. COMPARISON: 07/19/23, 07/18/22, 07/11/21 TECHNIQUE: Bilateral digital breast tomosynthesis was performed in the CCand MLO projections. Computer aided detection with [employer] AI 3D 3.1was employed. BREAST DENSITY: A - The breasts are almost entirely fatty. FINDINGS: Reduction mammoplasty sequelae are again seen, including several smallround calcifications close to the skin line. No suspicious masses, groupedmicrocalcifications, or developing architectural distortion are seen. Thevascularity is unremarkable. IMPRESSION: Stable mammographic appearance of the breasts. No evidence of malignancyis seen. A negative mammogram in the presence of a clinically suspicious palpableabnormality does not preclude the possibility of malignancy or alter theindications for biopsy. BI-RADS CATEGORY: 2 - BENIGN RECOMMENDATION: Screening bilateral mammogram is recommended in 1 year. Mammo Location: [facility], [address] [place] [address], [id number], . -------- FINAL REPORT -------- Dictated By: Aye Colvin Dictated Date: 07/21/2024 08:21 ET Assigned Physician: Aye Colvin Reviewed and Electronically Signed By: Aye Colvin Signed Date: 07/21/2024 08:22 ET Workstation ID: [id number] Transcribed By: Self Edit Transcribed Date: 07/21/2024 08:21 ET Brynn Preciado MD IMG BI PROCEDURES Final Re sult from Last 3 Months or Most Recently Relevant to Health Maintenance Insurance [facility] [place] [address] [facility] Care Teams Home Care Aide Relationship Specialty Start Date End Date Talia Joseph MD [address] [facility] [place] [id number] PCP - General Internal Medicine 03/31/24
--- NOTE | 2024-12-26 08:17 | A.OFFPC_ITS ---
Vital Signs 12/26/24 08:18 Height 5 ft 1 in Weight 147 lb BMI 27.8 BP 128/68 Blood Pressure Location Lt brachial Position Sitting Respiration 18 Pulse 73 Pulse Source Pulse Oximeter Temp 98.0 F Temp Source Oral Pulse Oximetry (%) 99 Oxygen Delivery Method Room Air Intake Visit Reasons: PE Intake Note: Pt is here today for PE. Allergies aspirin Allergy (Unknown, Verified 12/26/24 08:19) Stomach pain meperidine (Demerol) Allergy (Unknown, Verified 12/26/24 08:19) face swelling Influenza Virus Vaccines Allergy (Verified 12/26/24 08:19) allergic reaction latex Allergy (Verified 12/26/24 08:19) Rash Medication List - Last Reconciled 12/26/24 by Talia Joseph MD baclofen 10 mg PO BEDTIME PRN estradiol 1 mg PO DAILY levothyroxine (Synthroid) 100 mcg PO DAILY meloxicam 15 mg PO DAILY omeprazole 40 mg PO DAILY sertraline 50 mg PO DAILY tamsulosin 0.4 mg PO DAILY trazodone 50 mg PO BEDTIME Tobacco use date assessed: 12/26/24 Dental Screening Dental Screen Date: 12/26/24 Did you have a dental visit in the last 12 months?: Yes Did you have a dental problem in the last 6 months where you did not have access to dental care?: No Was dental information given to patient?: Patient has dentist HPI PE HPI Details Patient presents for a physical. Her mother has been sick in the hospital in and out and patient has been under a lot of stress. She complains of left axillary and inner arm pain and tenderness for few months. She denies any breast lumps or pain. Patient had negative mammogram about 6 months ago. [facility] Medical History (Updated 12/26/24 @ 09:08 by Talia Joseph MD) Carpal tunnel syndrome of left wrist Fibromyalgia ESTHELA positive Hypothyroidism Hyperlipemia History of nephrolithiasis Bunion of great toe of right foot Psoriasis Upper back pain Annual physical exam Migraine Surgical History (Updated 12/26/24 @ 09:08 by Talia Joseph MD) Hx of colonoscopy Hx of hysterectomy History of bilateral breast reduction surgery Family History Father Hypertension Head and neck cancer Mother Hypertension Maternal Aunt Psoriatic arthritis Social History Housing: House Comment: count correct Patient Tobacco Use Status: Never used Tobacco e-Cigarette/Vaping Use: Never Used service: No Current occupational status: employed 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 1. Little interest or pleasure in doing things: not at all 2. Feeling down, depressed, or hopeless: not at all 3. Trouble falling or staying asleep, or sleeping too much: not at all 4. Feeling tired or having little energy: not at all 5. Poor appetite or overeating: not at all 6. Feeling bad about yourself - or that you are a failure or have let yourself or your family down: not at all 7. Trouble concentrating on things, such as reading the newspaper or watching television: not at all 8. Moving or speaking so slowly that other people could have noticed. Or the opposite - being so fidgety or restless that you have been moving around a lot more than usual: not at all 9. Thoughts that you would be better off or of hurting yourself in some way: not at all Total score: 0 Depression Screening Interpretation: Negative Depression Screening Done: Yes 27960 - PHQ-9 Billing: Yes Source: Developed by Drs. Aaron Mcduffie, Zoë Garcia, Morris Mccann and colleagues, with an educational demond from [employer]. Thrive Questionnaire Date Thrive assessed: 12/26/24 I am a: Patient What is your living situation today?: I have a steady place to live Within the past 12 months, did the food you bought not last and you didn't have the money to get more?: Never true Within the past 12 months, did you worry whether your food would run out before you got money to buy more?: Never true Do you have trouble paying for medicines?: No Do you have trouble getting transportation to medical appointments?: No Do you have trouble paying your heating and electricity bill?: No Do you have trouble taking care of your child, family member or friend?: No Do you have trouble with day-to-day activities such as bathing, preparing meals, shopping, managing finances, etc.?: No Are you currently unemployed and looking for a job?: No Are you interested in more education?: No Please select the resources that you would like help with: None Currently or been in a relationship where the following occur: I choose not to answer THRIVE Score: 0 AUDIT C Alcohol Use Questionnaire (AUDIT-C) 1. How often do you have a drink containing alcohol?: Monthly or less 2. How many drinks containing alcohol do you have on a typical day when you are drinking?: 1 or 2 3. How often do you have six or more drinks on one occasion?: Less than monthly Total Score: 2 AGNES-7 AMB Questionnaire AGNES-7 Date AGNES - 7 assessed: 12/26/24 Feeling nervous, anxious, or on edge: 1 = Several days Not being able to stop or control worryin = Several days Worrying too much about different things: 1 = Several days Trouble relaxin = Several days Being so restless that it is hard to sit still: 0 = Not at all Becoming easily annoyed or irritable: 1 = Several days Feeling afraid as if something awful might happen: 0 = Not at all Total AGNES-7 score (0-4 normal; 5-9 mild; 10-14 moderate; 15-21 severe): 5 Source: Developed by Drs. Aaron Mcduffie, Zoë Garcia, Morris Mccann and colleagues, with an educational demond from [employer]. AGNES-7 Assessment Billing AGNES-7 Assessment Tool: AGNES-7 Assessment 71328 Review of Systems Const All systems reviewed & are unremarkable except as noted in HPI and below Eyes Reports no additional complaints ENT Reports no additional complaints Card Reports no additional complaints Resp Reports no additional complaints GI Reports no additional complaints Reports no additional complaints Physical exam (Primary Care) Vital Signs: Last Vital Signs Temp 98.0 F 12/26/24 08:18 Pulse 73 12/26/24 08:18 Resp 18 12/26/24 08:18 BP 128/68 12/26/24 08:18 Pulse Ox 99 12/26/24 08:18 Oxygen Delivery Method Room Air 12/26/24 08:18 BMI result Body Mass Index 27.8 Tobacco/Smoking Status: Tobacco use Status Tobacco use date assessed 12/26/24 12/26/24 08:23 Patient Tobacco Use Status Never used Tobacco 12/26/24 08:17 e-Cigarette/Vaping Use Never Used 12/26/24 08:17 PHQ-9: PHQ-9 Score PHQ-9: Total score 0 12/26/24 08:23 Depression Screening Interpretation: Negative Thrive Assessment: Date of Thrive Assessment Date Thrive assessed 12/26/24 12/26/24 08:23 Currently or been in a relationship where the following occur: I choose not to answer Const General: no acute distress HENMT Head: Yes normal to inspection Ears: hearing grossly normal bilaterally Face and sinus: Yes normal facial exam Mouth: Normal oral and palatal mucosa present Throat: Yes posterior oropharynx normal Eyes General: appearance normal, both eyes and all related structures Neck Neck: Yes no lymphadenopathy and Yes supple Chest Other: There is a tenderness in left axillary region and left inner arm no masses or lymph nodes palpable Resp Effort & Inspection: normal respiratory effort Auscultation: clear to auscultation bilaterally Cardio Rhythm: regular rhythm Heart sounds: S1 normal heart sound present and S2 normal heart sound present GI Inspection: Yes normal to inspection Palpation (GI): Soft to palpation Percussion: Yes normal to percussion Auscultation: normal bowel sounds Coding Level of Care Code Est Pt Prev Care 40-64y(25379) Diagnoses Hyperlipemia E78.5 Hypothyroidism E03.9 Left axillary pain M79.622 Fibromyalgia M79.7 Annual physical exam Z00.00 Additional Codes AGNES-7 Assessment Billing - AGNES-7 Assessment Tool: AGNES-7 Assessment 73391 ([id number]) PHQ-9 - 15926 - PHQ-9 Billing: Yes ([id number]) Assessment & Plan Assessment & Plan (1) Hyperlipemia: Code(s): E78.5 - Hyperlipidemia, unspecified Category: Medical Plan: Low-cholesterol diet discussed with the patient. She will return in 1 month for fasting labs (2) Hypothyroidism: Code(s): E03.9 - Hypothyroidism, unspecified Category: Medical Plan: Continue levothyroxine (3) Left axillary pain: Code(s): M79.622 - Pain in left upper arm Category: Medical Plan: Obtain ultrasound to evaluate left axillary region (4) Fibromyalgia: Comment: F/U [facility], controlled on gabapentin Code(s): M79.7 - Fibromyalgia Category: Medical Plan: Follow-up with rheumatology continue gabapentin (5) Annual physical exam: Code(s): Z00.00 - Encounter for general adult medical examination without abnormal findings Category: Medical Plan: Well-balanced diet regular physical activity discussed with the patient she is up-to-date with colonoscopy mammogram and Pap smear Orders: Orders TSH reflex Free T4 1 Month E03.9 - Hypothyroidism, unspecified, E78.5 - Hyperlipidemia, unspecified Lipid Panel 1 Month E78.5 - Hyperlipidemia, unspecified LDL Cholesterol Direct 1 Month E78.5 - Hyperlipidemia, unspecified US Extremity Nonvas Limited LT Today M79.622 - Pain in left upper arm Medications: New gabapentin 300 mg PO BID 180 caps 0RF
[2024-12-26 08:18] VITALS: BP 128/68; PULSE 73; RESP 18; TEMP 36.7; O2SAT 99; BMI 27.8
== END 2024-12-26 09:02 | disposition home or self-care (01) ==
LOC: HO.HMCC 08:10
PROVIDERS: PCP Internal Medicine; Visit Provider Internal Medicine
DX: E78.5 Hyperlipidemia, unspecified (principal); E03.9 Hypothyroidism, unspecified; M79.622 Pain in left upper arm; M79.7 Fibromyalgia; Z00.00 Encounter for general adult medical examination without abnormal findings

== ENCOUNTER → 2024-12-26 08:09 | Outpatient (BNVA) | payer BC, SELFPAY | PROVIDERS: PCP Internal Medicine; Visit Provider Internal Medicine | DX: Z00.00 Encounter for general adult medical examination without abnormal findings (principal); E78.5 Hyperlipidemia, unspecified; E03.9 Hypothyroidism, unspecified; M79.622 Pain in left upper arm; M79.7 Fibromyalgia; Z79.899 Other long term (current) drug therapy; Z13.31 Encounter for screening for depression; Z13.39 Encounter for screening examination for other mental health and behavioral disorders | CPT/HCPCS: 96127 ==

== ENCOUNTER 2025-01-20 06:54 | Outpatient (REF) | payer BC, SELFPAY ==
[2025-01-20 12:04] LABS: Cholesterol 286 mg/dL (<200); HDL Cholesterol 46 mg/dL (>40); Triglycerides 138 mg/dL (<150)
== END 2025-01-20 06:55 | disposition home or self-care (01) ==
LOC: HO.HMGCLDS 06:54
PROVIDERS: PCP Internal Medicine; Visit Provider Internal Medicine
DX: E78.5 Hyperlipidemia, unspecified (principal); E03.9 Hypothyroidism, unspecified
CPT/HCPCS: 36415; 80061; 83721; 84443

== ENCOUNTER 2025-02-01 15:13 | Outpatient (REF) | payer BC, SELFPAY ==
--- NOTE | ~2025-02-01 | US_ITS ---
US EXTREMITY NONVASCULAR LIMITED LEFT HISTORY: Left axillary pain and swelling, family history of breast cancer. COMPARISON: None. TECHNIQUE: Grayscale and color Doppler ultrasound imaging of the left axilla was performed in the region of concern as indicated by the patient. FINDINGS: No mass, abnormal fluid collection, cystic abnormality, or other abnormality identified. No abnormal lymph nodes. There are 2 sonographically normal-appearing lymph nodes present measuring less than 10 mm in short axis. These are benign. US/US Extremity Nonvas Limited LT IMPRESSION: No abnormality detected in the left axilla. Electronically signed by: Steve Oliva MD 02/01/2025 04:01 PM EDT
--- OUTSIDE RECORDS SUMMARY | 2025-02-01 16:15 | XMS_ITS | Clinical Summary ---
Author Organization [facility] Address [address] [place] [address] Phone Care Team Providers Care Clerk Guide Name Role Phone Talia Joseph MD Primary Care Provider [phone] Surgical History Surgery Date Site/Laterality Comments HYSTERECTOMY DE BREAST REDUCTION Family History Medical History Relation [...] 11/30/2023 Zoster Vaccines (1 of 2) 11/30/2023 Depression Screening 05/31/2024 COVID-19 Vaccine ( season) 2025 09/05/2021, 10/24/2020, 10/04/2020, Additional history exists Influenza Vaccine (#1) 2025 Breast Cancer Screening [...] year. Mammo Location: [facility], [address] [place] [address], [id number], . -------- FINAL REPORT -------- Dictated By: Aye Colvin Dictated Date: 07/21/2024 08:21 ET Assigned Physician: Aye Colvin Reviewed and Electronically Signed By: Aye Colvin Signed Date: 07/21/2024 08:22 ET Workstation ID: [id number] Transcribed By: Self Edit Transcribed Date: 07/21/2024 08:21 ET Narrative 07/21/2024 8:22 AM EST HISTORY: Screening. Reduction mammoplasty in 2000. Aunt had breast carcinoma. COMPARISON: 07/19/23, 07/18/22, 07/11/21 TECHNIQUE: Bilateral digital breast tomosynthesis was performed in the CC and MLO projections. 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 BREAST DENSITY: [...] CCand MLO projections. Computer aided detection with [employer] AI 3D 3.1was employed. BREAST DENSITY: A [...] year. Mammo Location: [facility], [address] [place] [address], [id number], . -------- FINAL REPORT -------- Dictated By: Aye Colvin Dictated Date: 07/21/2024 08:21 ET Assigned Physician: Aye Colvin Reviewed and Electronically Signed By: Aye Colvin Signed Date: 07/21/2024 08:22 ET Workstation ID: [id number] Transcribed By: Self Edit Transcribed Date: 07/21/2024 08:21 ET Brynn Preciado MD IMG BI PROCEDURES Final Re sult from Last 3 Months or Most Recently Relevant to Health Maintenance Insurance [facility] [place] [id number] [facility] Care Teams Clerk Guide Relationship Specialty Start Date End Date Talia Joseph MD [address] [facility] [place] [address] PCP - General Internal Medicine 03/31/24
== END 2025-02-01 15:14 | disposition home or self-care (01) ==
LOC: HO.HMGCX 15:13
PROVIDERS: PCP Internal Medicine; Visit Provider Internal Medicine
DX: M79.622 Pain in left upper arm (principal)
CPT/HCPCS: 76882

== ENCOUNTER → 2025-02-01 15:18 | Outpatient (BNV) | payer BC, SELFPAY | PROVIDERS: PCP Internal Medicine; Visit Provider Radiology Diagnostic Radiology | DX: M79.622 Pain in left upper arm (principal); R22.32 Localized swelling, mass and lump, left upper limb | CPT/HCPCS: 76882 ==

== ENCOUNTER 2025-04-28 07:03 | Outpatient (REF) | payer BC, SELFPAY ==
--- OUTSIDE RECORDS SUMMARY | 2025-04-28 07:05 | XMS_ITS | Clinical Summary ---
Author Organization [facility] Address [address] [place] [address] Phone Care Team Providers Care Sales And Leasing Agent Name Role Phone Talia Joseph MD Primary Care Provider [phone] Surgical History Surgery Date Site/Laterality Comments HYSTERECTOMY IN BREAST REDUCTION Family History Medical History Relation [...] 07/20/2024 2:54 PM EST Plan of Treatment Upcoming Encounters Date Type Department Care Team (Late st Contact Info) Description 05/09/2025 1:30 PM EST [facility]ointment [facility] [address] [address] Health Maintenance Due Date Last Done Comments Colorectal Cancer Screening: Colonoscopy 1973 Hepatitis B Vaccines (1 of 3 - 19+ 3-dose series) 1992 Cervical Cancer Screening: Pap Smear 1994 HIV Screening 05/03/2022 Hepatitis C Screening 05/03/2022 Social Influencers of Health Screening 05/03/2022 Pneumococcal Vaccine: 50+ Years (1 of 1 - PCV) 11/30/2023 Zoster Vaccines (1 of 2) 11/30/2023 Depression Screening 05/31/2024 COVID-19 Vaccine (5 - 2024- season) 2025 09/05/2021, 10/24/2020, 10/04/2020, Additional history exists Influenza Vaccine (#1) 2025 Breast Cancer Screening 07/20/2026 07/20/19, 07/19/2023, 07/20/2022, Additional history exists DTaP,Tdap,and Td Vaccines (2 - Td or Tdap) 05/14/2033 05/14/2023 RSV Immunization Adult Patients (1 - 1-dose 75+ series) 2048 HIB Vaccines Aged Out No longer eligi [...] year. Mammo Location: [facility], [address] [place] [address], [id number], . -------- FINAL REPORT -------- Dictated By: Aye Colvin Dictated Date: 07/21/2024 08:21 ET Assigned Physician: Aye Colvin Reviewed and Electronically Signed By: Aye Colvin Signed Date: 07/21/2024 08:22 ET Workstation ID: [id number] Transcribed By: Self Edit Transcribed Date: 07/21/2024 08:21 ET Narrative 07/21/2024 8:22 AM EST HISTORY: Screening. Reduction mammoplasty in 2000. Aunt had breast carcinoma. COMPARISON: 07/19/23, 07/18/22, 07/11/21 TECHNIQUE: Bilateral digital breast tomosynthesis was performed in the CC and MLO projections. 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 BREAST DENSITY: [...] CCand MLO projections. Computer aided detection with [employer] AI 3D 3.1was employed. BREAST DENSITY: A [...] year. Mammo Location: [facility], [address] [place] [address], [id number], . -------- FINAL REPORT -------- Dictated By: Aye Colvin Dictated Date: 07/21/2024 08:21 ET Assigned Physician: Aye Colvin Reviewed and Electronically Signed By: Aye Colvin Signed Date: 07/21/2024 08:22 ET Workstation ID: [id number] Transcribed By: Self Edit Transcribed Date: 07/21/2024 08:21 ET Brynn Preciado MD IMG BI PROCEDURES Final Re sult from Last 3 Months or Most Recently Relevant to Health Maintenance Insurance [address] [place] [address] [facility] Care Teams Sales And Leasing Agent Relationship Specialty Start Date End Date Talia Joseph MD [address] [facility] [place] [address] PCP - General Internal Medicine 03/31/24
[2025-04-28 11:41] LABS: Alanine Aminotransferase 17 U/L (0-31); Albumin Level 4.6 g/dL (3.5-5.0); Alkaline Phosphatase 64 U/L (39-117); Anion Gap 12 (12-20); Aspartate Amino Transferase 25 U/L (5-31); Blood Urea Nitrogen 15 mg/dL (9-16); Calcium 9.3 mg/dL (8.4-10.2); Carbon Dioxide 25 mmol/L (22-29); Chloride 111 mmol/L (96-108); Cholesterol 158 mg/dL (<200); Estimated Glomerular Filt Rate > 60; HDL Cholesterol 49 mg/dL (>40); Potassium 3.8 mmol/L (3.3-5.1); Sodium 144 mmol/L (135-145); Total Protein 7.1 g/dL (6.5-8.0); Triglycerides 120 mg/dL (<150)
== END 2025-04-28 07:04 | disposition home or self-care (01) ==
LOC: HO.HMGCLDS 07:03
PROVIDERS: PCP Internal Medicine; Visit Provider Internal Medicine
DX: E78.5 Hyperlipidemia, unspecified (principal)
CPT/HCPCS: 36415; 80053; 80061